=== PATIENT | female | born 1995 | race Caucasian/White ===

== ENCOUNTER 2017-02-05 02:39 | Emergency (ER) | payer OTHER ==
[~2017-02-05] VITALS: Ht 152.4 cm; Wt 98.4 kg
[~2017-02-05 02:39] MED LIST: ASPIRIN325 MG PO; BACTRIM DS TAB1 EACH PO; CEPACOL SORE T1 EAC5 MM; CYCLOBENZAPRINE10 MG PO; HYDROCODON-ACE1 EA10 PO; KEFLEX500 MG PO; NAPROXEN500 MG PO; NORCO 5-325 TA1 EACH PO; PNV PRENATAL P1 EACH PO; PROVENTIL HFA6.7 GM INH; STRATTERA40 MG PO; TRAMADOL HCL50 MG PO; VENTOLIN HFA18 GM INH; ZOFRAN ODT4 MG PO
--- NOTE | 2017-02-05 17:13 | EKG ---
[facility] [address] [facility] [place], [place] [address] Signed Normal sinus rhythm Normal ECG No previous ECGs available Confirmed by JULIANNE CHUN MD ([id number]) on 02/05/2017 5:12:56 PM Electronically Signed By: JULIANNE CHUN MD 02/05/17 1713 PATIENT NAME: GURINDER CHANDRA Electrocardiogram DATE OF : [birth year] PHYSICIAN: JULIANNE CHUN MD REPORT #: [id number] REPORT IS CONFIDENTIAL AND NOT TO BE RELEASED WITHOUT AUTHORIZATION
== END 2017-02-05 06:30 | disposition home or self-care (01) ==
LOC: ED 02:39
DX: R53.1 Weakness (principal); F90.9 Attention-deficit hyperactivity disorder, unspecified type; F43.10 Post-traumatic stress disorder, unspecified; J45.909 Unspecified asthma, uncomplicated; Z87.891 Personal history of nicotine dependence; Z79.899 Other long term (current) drug therapy
CPT/HCPCS: 70450; 80053; 81001; 82550; 83735; 84703; 85025; 93005; 93010; 96360; 99284; G0480; J7030

== ENCOUNTER 2017-07-31 22:35 | Emergency (ER) | payer OTHER ==
[~2017-07-31] VITALS: Ht 152.4 cm; Wt 9852.9 kg
[2017-07-31] MEDS ORDERED: HYDROXYZINE HCL50 MG PO (23:33)
[2017-07-31] MEDS ORDERED: ELIMITE60 GM TOP (23:33)
== END 2017-07-31 23:48 | disposition home or self-care (01) ==
LOC: ED 22:35
DX: R21 Rash and other nonspecific skin eruption (principal); F90.9 Attention-deficit hyperactivity disorder, unspecified type; F43.10 Post-traumatic stress disorder, unspecified; J45.909 Unspecified asthma, uncomplicated; Z87.891 Personal history of nicotine dependence; Z79.899 Other long term (current) drug therapy
CPT/HCPCS: 99283

== ENCOUNTER → 2017-08-19 | Emergency (ER) | payer OTHER ==
[~2017-08-19] VITALS: Ht 152.4 cm; Wt 101.6 kg
[~2017-08-19] MED LIST changes: +ELIMITE60 GM TOP; +HYDROXYZINE HCL50 MG PO
== END ==
LOC: ED 19:17
DX: R09.81 Nasal congestion (principal); J45.909 Unspecified asthma, uncomplicated; Z87.891 Personal history of nicotine dependence; Z79.899 Other long term (current) drug therapy
CPT/HCPCS: 99282

== ENCOUNTER 2018-01-08 13:45 | Emergency (ER) | payer OTHER ==
[~2018-01-08] VITALS: Ht 152.4 cm; Wt 101.6 kg
[2018-01-08] MEDS ORDERED: ZOFRAN ODT8 MG PO (15:39)
== END 2018-01-08 15:45 | disposition home or self-care (01) ==
LOC: ED 13:45
DX: N92.6 Irregular menstruation, unspecified (principal); R10.31 Right lower quadrant pain; R10.32 Left lower quadrant pain; F90.9 Attention-deficit hyperactivity disorder, unspecified type; F43.10 Post-traumatic stress disorder, unspecified; J45.909 Unspecified asthma, uncomplicated
CPT/HCPCS: 81001; 84703; 99284

== ENCOUNTER 2018-08-11 19:59 | Emergency (ER) | payer BC, OTHER ==
[~2018-08-11] VITALS: Ht 152.4 cm; Wt 105.2 kg
[~2018-08-11 19:59] MED LIST changes: +ZOFRAN ODT8 MG PO
--- OUTSIDE RECORDS SUMMARY | 2018-08-11 20:02 | XMS ---
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 PLEASE GIVE PATIENT THIS FOLDING MACHINE SETTER NAME AND NUMBER TO CALL FOR HELP OR QUESTIONS. RAEGAN TRAN TRAILHEAD MAINTENANCE WORKERBI ANALYST [facility] [phone] EKatie VISIT COUNT (12 MO.) 1 Britney Alonso M.C. 4 MIKE Ryder TOTAL 5 NOTE: Visits indicate total known visits. ED/UCC VISIT TRACKING (12 MO.) 08/11/2018 20:00 MIKE Ortega [place] TYPE: Emergency COMPLAINT: - RASH 05/13/2018 06:59 MIKE Ortega [place] TYPE: Emergency COMPLAINT: - VAGINAL BLEEDING; 7 WEEKS DIAGNOSES: - Less than 8 weeks gestation of - Unspecified asthma, uncomplicated - Threatened - Post-traumatic stress disorder, unspecified - Attention-deficit hyperactivity disorder, unspecified type 01/08/2018 17:50 [facility] Ashely HUGGINS TYPE: Emergency DIAGNOSES: - Unspecified abdominal pain - Abdominal Pain - abd pain 01/08/2018 13:45 MIKE Martins TYPE: Emergency COMPLAINT: - ABD PAIN DIAGNOSES: - Left lower quadrant pain - Attention-deficit hyperactivity disorder, unspecified type - Irregular menstruation, unspecified - Right lower quadrant pain - Post-traumatic stress disorder, unspecified - Unspecified asthma, uncomplicated 08/19/2017 19:18 MIKE Ortega [place] TYPE: Emergency COMPLAINT: - CONGESTION DIAGNOSES: - Acute pharyngitis, unspecified - Other bed bug exterminator (current) drug therapy - Unspecified asthma, uncomplicated - Nasal congestion - Personal history of nicotine dependence INPATIENT VISIT TRACKING (12 MO.) No inpatient visits to display in this time frame [email or web address]
[2018-08-11] MEDS ORDERED: VENTOLIN HFA18 GM INH (20:31)
[2018-08-11] MEDS ORDERED: TRIAMCINOLONE A15 GM TOP (21:05)
== END 2018-08-11 21:13 | disposition home or self-care (01) ==
LOC: ED 19:59
DX: L20.9 Atopic dermatitis, unspecified (principal); F90.9 Attention-deficit hyperactivity disorder, unspecified type; F43.10 Post-traumatic stress disorder, unspecified; J45.909 Unspecified asthma, uncomplicated
CPT/HCPCS: 99282

== ENCOUNTER 2018-09-07 12:46 | Emergency (ER) | payer BC, OTHER ==
[~2018-09-07] VITALS: Ht 152.4 cm; Wt 111.8 kg
--- OUTSIDE RECORDS SUMMARY | ~2018-09-07 | XMS | Clinical Summary ---
Demographics + + + | Address | [address] | | | [place] [address] | + + + | Home Phone | | + + + | Preferred Language | Unknown | + + + | Marital Status | Unknown | + + + | Faith Affiliation | Unknown | + + + | Race | Unknown | + + + | Ethnic Group | Unknown | + + + Author + + + | Author | [facility] | | | and [place] | + + + | Organization | [facility] | | | and [place] | [...] Team Providers + +------+ + | Care Vessel Builder Name | Role | Phone | + +------+ + | No, Physician | PP | Unavailable | + +------+ + Allergies No Known Allergies Current Medications + + +--------+---------+------+------+-------+ | Prescription | Sig. | Disp. | Refills | Star | End | Statu | | | | | | t | Date | s | | | | | | Date | | | + + +--------+---------+------+------+-------+ | albuterol 90 | Inhale 2 puffs into | | | | | Activ | | mcg/puff inhaler | the lungs every 6 | | | | | e | | | hours as needed for | | | | | | | | Wheezing. | | | | | | + + +--------+---------+------+------+-------+ | | Take 1-2 tablets by | 12 | 0 | 07/1 | | Activ | | HYDROcodone-acetamin | mouth every 6 hours | tablet | | 5/20 | | e | | ophen (NORCO) 5-325 | as needed for Pain. | | | 18 | | | | mg per tablet | | | | | | | + + +--------+---------+------+------+-------+ | ondansetron | Take 1 tablet by | 10 | 0 | 07/1 | | Activ | | (ZOFRAN ODT) 4 mg | mouth every 8 hours | tablet | | 5/20 | | e | | disintegrating | as needed for | | | 18 | | | | tablet | Nausea. | | | | | | + + +--------+---------+------+------+-------+ Active Problems Not on file Social History + +-------+ +--------+------+ [...] + + +---------+ + + + + + | Currently | Estimated Date of Delivery | Comments | + + + + | Yes | | | + + + + + + + | Sex Assigned at | Date Recorded | | | | + + + | Not on file | | + + + Last Filed Vital Signs + + + + | Vital Sign | Reading | Time Taken | + + + + | Blood Pressure | 102/83 | 01/08/20181949 PDT | + + + + | Pulse | 69 | 01/08/20181949 PDT | + + + + | Temperature | 36.3 C (97.3 F) | 01/08/2018 1813 PDT | + + + + | [...] | | | | | (#1) | 8 | | | + + + + + Results Not on filefrom Last 3 Months Insurance + +--------+ +--------+ +---------+ | Payer | Benefi | Subscriber | Type | Phone | Address | | | t Plan | ID | | | | | | / | | | | | | | Group | | | | | + +--------+ +--------+ +---------+ | [employer] | MODA | [id number] | Medica | [phone] | | MEDICAID HMO | HEALTH | | id | 9821 | | | | [place]CD | | | | | | | [place] | | | | | + +--------+ +--------+ +---------+ + +--------+ +--------+ + + | Guarantor Name | Accoun | Relation to | Date | Phone | Billing Address | | | t Type | Patient | of | | | | | | | | | | + +--------+ +--------+ + + | JODI CHANDRA | Person | Self | [birth year] | Home: | [address] | | [place] | al/Lance | | 1995 | [phone] [place], [place] | | | dewayne | | | [phone] | + +--------+ +--------+ + +"
--- OUTSIDE RECORDS SUMMARY | ~2018-09-07 | XMS | Clinical Summary ---
Demographics + + + | Address | [address] | | | [place] [address] | + + + | Home Phone | | + + + | Preferred Language | Unknown | + + + | Marital Status | Unknown | + + + | Faith Affiliation | Unknown | + + + | Race | Unknown | + + + | Ethnic Group | Unknown | + + + Author + + + | Author | [facility] | | | and [place] | + + + | Organization | [facility] | | | and [...] Team Providers + +------+ + | Care Tuyere Fitter Name | Role | Phone | + [...] | [employer] | MODA | [id number] | Medica | [phone] | | [...] | [place] | | | [phone] | [phone] | + +--------+ +--------+ + +"
[~2018-09-07 12:46] MED LIST changes: +TRIAMCINOLONE A15 GM TOP
--- OUTSIDE RECORDS SUMMARY | 2018-09-07 12:50 | XMS ---
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 PLEASE GIVE PATIENT THIS ASSEMBLER CAMPER NAME AND NUMBER TO CALL FOR HELP OR QUESTIONS. RAEGAN TRAN TECHNICIAN AUTOMATICDIRECTOR OF PHARMACY [facility] [phone] Bharti VISIT COUNT (12 MO.) 1 Britney Alonso M.C. 4 MIKE Ryder TOTAL 5 NOTE: Visits indicate total known visits. ED/UCC VISIT TRACKING (12 MO.) 09/07/2018 12:47 MIKE Ortega [place] TYPE: Emergency COMPLAINT: - RASH ON BREASTS 08/11/2018 20:00 MIKE Ortega [place] TYPE: Emergency COMPLAINT: - RASH DIAGNOSES: - Unspecified asthma, uncomplicated - Atopic dermatitis, unspecified - Post-traumatic stress disorder, unspecified - Attention-deficit hyperactivity disorder, unspecified type - Rash and other nonspecific skin eruption 05/13/2018 06:59 MIKE Ortega [place] TYPE: Emergency COMPLAINT: - VAGINAL BLEEDING; 7 WEEKS DIAGNOSES: - Less than 8 weeks gestation of - Unspecified asthma, uncomplicated - Threatened - Post-traumatic stress disorder, unspecified - Attention-deficit hyperactivity disorder, unspecified type 01/08/2018 17:[address] [facility] Marcos HUGGINS TYPE: Emergency DIAGNOSES: - Unspecified abdominal pain - Abdominal Pain - abd pain 01/08/2018 13:45 MIKE Martins TYPE: Emergency COMPLAINT: - ABD PAIN DIAGNOSES: - Left lower quadrant pain - Attention-deficit hyperactivity disorder, unspecified type - Irregular menstruation, unspecified - Right lower quadrant pain - Post-traumatic stress disorder, unspecified - Unspecified asthma, uncomplicated INPATIENT VISIT TRACKING (12 MO.) No inpatient visits to display in this time frame [email or web address]
== END 2018-09-07 13:11 | disposition home or self-care (01) ==
LOC: ED 12:46
DX: R21 Rash and other nonspecific skin eruption (principal)

== ENCOUNTER 2018-12-24 22:55 | Emergency (ER) | payer OTHER ==
[~2018-12-24] VITALS: Ht 152.4 cm; Wt 111.6 kg
--- OUTSIDE RECORDS SUMMARY | 2018-12-24 22:58 | XMS ---
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 Guidelines Date: 12/30/2016 Care Coordination: ENCOURAGE PATIENT TO USE PCP FOR FOLLOW UP AND FOR NON-EMERGENT PROBLEMS. PLEASE GIVE PATIENT THIS DESIGNER ARCHITECT NAME AND NUMBER TO CALL FOR HELP OR QUESTIONS. 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 5 MIKE Ryder TOTAL 6 NOTE: Visits indicate total known visits. ED/UCC VISIT TRACKING (12 MO.) 12/24/2018 22:56 MIKE Ortega [place] TYPE: Emergency COMPLAINT: - POSS INFECTION 09/07/2018 12:47 MIKE Ortega [place] TYPE: Emergency COMPLAINT: - RASH ON BREASTS DIAGNOSES: - Rash and other nonspecific skin eruption 08/11/2018 20:00 MIKE Martins TYPE: Emergency COMPLAINT: - RASH DIAGNOSES: - [...] Attention-deficit hyperactivity disorder, unspecified type 01/08/2018 17:50 [facility] Ashely HUGGINS TYPE: Emergency DIAGNOSES: - Unspecified [...] visits to display in this time frame [email or web address]
[2018-12-24] MEDS ORDERED: NYSTATIN15 GM TOP (23:17)
== END 2018-12-24 23:27 | disposition home or self-care (01) ==
LOC: ED 22:55
DX: O99.711 Diseases of the skin and subcutaneous tissue complicating pregnancy, first trimester (principal); L30.4 Erythema intertrigo; F90.9 Attention-deficit hyperactivity disorder, unspecified type; F43.10 Post-traumatic stress disorder, unspecified; Z87.891 Personal history of nicotine dependence
CPT/HCPCS: 99282

== ENCOUNTER 2019-04-21 12:11 | Emergency (ER) | payer OTHER ==
[~2019-04-21] VITALS: Ht 152.4 cm; Wt 115.4 kg
--- OUTSIDE RECORDS SUMMARY | ~2019-04-21 | XMS | Clinical Summary ---
Demographics + + + | Address | [address] | | | [place] [address] | + + + | Home Phone | | + + + | Preferred Language | Unknown | + + + | Marital Status | Unknown | + + + | Mormon Affiliation | Unknown | + + + | Race | Unknown | + + + | Ethnic Group | Unknown | + + + Author + + + | Author | [facility] | | | and [place] | + + + | Organization | [facility] | | | and [place] | + + + | Address | Unknown | + + + | Phone | Unavailable | + + + Support + + +---------+ + | Name | Relationship | Address | Phone | + + +---------+ + | Keny Meeks | ECON | Unknown | | + + +---------+ + Care Team Providers + +------+ + | Care Professor Of Finance Name | Role | Phone | + +------+ + | No, Physician | PCP | Unavailable | + +------+ + Allergies No Known Allergies Medications + + + +---------+------+------+-------+ | Medication | Sig | Dispensed | Refills | Star | End | Statu | | | | | | t | Date | s | | | | | | Date | | | + + + +---------+------+------+-------+ | albuterol 90 | Inhale 2 puffs into | | 0 | | | Activ | | mcg/puff inhaler | the lungs every 6 | | | | | e | | | hours as needed for | | | | | | | | Wheezing. | | | | | | + + + +---------+------+------+-------+ | | Take 1-2 tablets by | 12 | 0 | 07/1 | | Activ | | HYDROcodone-acetamin | mouth every 6 hours | tablet | | 5/20 | | e | | ophen (NORCO) 5-325 | as needed for Pain. | | | 18 | | | | mg per tablet | | | | | | | + + + +---------+------+------+-------+ | ondansetron | Take 1 tablet by | 10 | 0 | 07/1 | | Activ | | (ZOFRAN ODT) 4 mg | mouth every 8 hours | tablet | | 5/20 | | e | | disintegrating | as needed for | | | 18 | | | | tablet | Nausea. | | | | | | + + + +---------+------+------+-------+ Active Problems + + + | | Comments | + + + | Yes | | + + + No additional problems on file Social History + +-------+ +--------+------+ | Tobacco Use | Types | Packs/Day | Years | Date | | | | | Used | | + +-------+ +--------+------+ | Never Smoker | | | | | + +-------+ +--------+------+ + + +---------+ + | Alcohol Use | Drinks/We | oz/Week | Comments | | | ek | | | + + +---------+ + | Yes | | | occasionally | + + +---------+ + + + + | | Comments | + + + | Yes | | + + + + + + | Sex Assigned at | Date Recorded | | | | + + + | Not on file | | + + + + + + + | Job Start Date | Occupation | Industry | + + + + | Not on file | Not on file | Not on file | + + + + + + + + | Travel History | Travel Start | Travel End | + + + + + + | No recent travel history available. | + + Last Filed Vital Signs + + + + | Vital Sign | Reading | Time Taken | + + + + | Blood Pressure | 102/83 | 01/08/20181949 PDT | + + + + | Pulse | 69 | 01/08/20181949 PDT | + + + + | Temperature | 36.3 C (97.3 F) | 01/08/20181812 PDT | + + + + | Respiratory Rate | 18 | 01/08/20181812 PDT | + + + + | Oxygen Saturation | 99% | 01/08/20181949 PDT | + + + + | Inhaled Oxygen | - | - | | Concentration | | | + + + + | Weight | 113.4 kg (250 lb) | 01/08/20181812 PDT | + + + + | Height | 152.4 cm (5') | 01/08/20181812 PDT | + + + + | Body Mass Index | 48.82 | 01/08/20181812 PDT | + + + + Plan of Treatment + + + + + | Health Maintenance | Due Date | Last Done | Comments | + + + + + | Vaccine: | | | | | Dtap/Tdap/Td (1 - | 5 | | | | Tdap) | | | | + + + + + | Cervical Cancer | | | | | Screening (Pap) | 7 | | | + + + + + | Vaccine: Influenza | | | | | (#1) | 9 | | | + + + + + Results Not on filefrom Last 3 Months Insurance + +--------+ +--------+ +---------+--------+ | Payer | Benefi | Subscriber | Effect | Phone | Address | Type | | | t Plan | ID | lan | | | | | | / | | Dates | | | | | | Group | | | | | | + +--------+ +--------+ +---------+--------+ | [employer] | MODA | [id number] | | [phone] | | Medica | | MEDICAID HMO | HEALTH | | [phone]-Pr | 1 | | id | | | MDCD | | esent | | | | | | [place]MO [place] | | | | | | + +--------+ +--------+ +---------+--------+ + +--------+ +--------+ + + | Guarantor Name | Accoun | Relation to | Date | Phone | Billing Address | | | t Type | Patient | of | | | | | | | | | | + +--------+ +--------+ + + | Jodi Bethea | Person | Self [birth year] | [address] | | [place] | sunil/Lance | | 1995 | [phone] | [place] | | | [place] | | | 1 (Home) | [phone] | + +--------+ +--------+ + + Advance Directives Patient has advance care planning documents on file. For more information, please contact:[facility] [place] [address]"
--- OUTSIDE RECORDS SUMMARY | ~2019-04-21 | XMS | Clinical Summary ---
Demographics + + + | Address | [address] | | | [place] [address] | + + + | Home Phone | | + + + | Preferred Language | Unknown | + + + | Marital Status | Unknown | + + + | Uatsdin Affiliation | Unknown | + + + | Race | Unknown | + + + | Ethnic Group | Unknown | + + + Author + + + | Author | [facility] | | | and [place] | + + + | Organization | [facility] | | | and [place] [...] Team Providers + +------+ + | Care Cook Morning Name | Role | Phone | + [...] | [employer] | MODA | [id number] | | [phone] | | Medica | [...] Miriam | sunil/Lance | | 1995 | [phone] | [place] | | | [place] | | | 1 (Home) | [phone] | + +--------+ +--------+ + + Advance Directives Patient has advance care planning documents on file. For more information, please contact:[facility] [place] [address]"
[~2019-04-21 12:11] MED LIST changes: +NYSTATIN15 GM TOP
[2019-04-21] MEDS ORDERED: TYLENOL325 M1 PO (15:08)
--- NOTE | 2019-04-21 19:59 | EKG ---
[facility] [address] [facility] [place], [place] [address] Signed Normal sinus rhythm Normal ECG Confirmed by JULIANNE CHUN MD ([id number]) on 04/21/2019 7:59:17 PM Electronically Signed By: JULIANNE CHUN MD 04/21/19 195 PATIENT NAME: GURINDER CHANDRA Electrocardiogram DATE OF : [birth year] PHYSICIAN: JULIANNE CHUN MD REPORT #: [id number] REPORT IS CONFIDENTIAL AND NOT TO BE RELEASED WITHOUT AUTHORIZATION
== END 2019-04-21 15:22 | disposition home or self-care (01) ==
LOC: ED 12:11
DX: O99.613 Diseases of the digestive system complicating pregnancy, third trimester (principal); K80.20 Calculus of gallbladder without cholecystitis without obstruction; Z87.891 Personal history of nicotine dependence
CPT/HCPCS: 76705; 80053; 83690; 83735; 84484; 85025; 93005; 93010; 96374; 99284-25; J2405

== ENCOUNTER 2019-05-31 09:40 | Inpatient (IN) | payer OTHER ==
[~2019-05-31 09:40] MED LIST changes: +TYLENOL325 M1 PO
--- NOTE | 2019-06-06 14:00 | NUR ---
06/06/19 1400 Soni Coulter 1349-PATIENT ARRIVED TO PACU ON RA AWAKE DENIES PAIN OR NAUSEA. SR. SPINAL LEVEL L1 REPORTS TENDERNESS WHEN PRESSING ABDOMEN. NO DRAINAGE TO SARAHY PAD. FUNDUS 1 ABOVE UMBILICUS FIRM. 1355-MOM HOLDING BABY
--- NOTE | 2019-06-07 10:15 | PR ---
[facility] [address] [facility] [place], [place] [address] Signed PP Progress Notes Datetime Report Generated by CPN: 06/07/2019 10:15 SUBJECTIVE: [id number] Pain: Within normal limits Nausea/Vomiting: Denies Vital Signs: [id number] Vital Signs: Reviewed; Within Normal Limits Notable Details: PP Hgb/Hct = 8.8/26.4 EXAM: [id number] Abdomen/Uterus: Normal Lochia: Normal Extremities: Normal Incision: Normal Exam Comments: dressing clean and dry IMPRESSION/PLAN/PROCEDURES: [id number] Impression: Normal progression Other Impression: PP Anemia Progress Notes: Doing well, witout complaint. Tolerating food wll. Encouraged increased actitivy once Lucia cath removed. Signing Physician: Luis Hobson MD Copies: ~ *Electronically Signed* 06/07/19 1015 LUIS HOBSON MD PATIENT NAME: GURINDER CHANDRA PROGRESS NOTE DATE OF : 95 PHYSICIAN: LUIS HOBSON MD RPT #: [id number] REPORT IS CONFIDENTIAL AND NOT TO BE RELEASED WITHOUT AUTHORIZATION
--- NOTE | 2019-06-07 10:16 | OR ---
[facility] [address] [place], [place] [address] Signed DATE OF OPERATION: 06/06/2019 SURGEON: Shawn Whitney MD DATE OF PROCEDURE: 06/06/2019 PREOPERATIVE DIAGNOSIS: Term , previous section. POSTOP DIAGNOSIS: Term , previous section. PROCEDURE: Repeat low transverse segment section. Delivery of live male . SHIPPING CLERK/ADMIN: Dr. Alicea. ANESTHESIA: Spinal. ESTIMATED BLOOD LOSS: 700 mL. COMPLICATIONS: None. DRAINS: Lucia to bladder. FINDINGS: Live male infant, Apgars 8 and 9. Weight 9 pounds 0 ounces. Normal uterus, normal tubes and ovaries. DESCRIPTION OF PROCEDURE: The patient was brought to the operating room, placed in supine position. After adequate spinal anesthesia was obtained, she was prepped and draped in usual sterile fashion. Lucia catheter was placed in the bladder. A Pfannenstiel skin incision was made through previous surgical scar using a scalpel. Subcutaneous tissue was dissected Electronically Signed By: SHAWN WHITNEY MD 06/07/19 1016 PATIENT NAME: GURINDER CHANDRA OPERATIVE REPORT DATE OF : 95 REPORT #: [id number] PHYSICIAN: SHAWN WHITNEY MD PCP: NO PRIMARY CARE PHYSICIAN REPORT IS CONFIDENTIAL AND NOT TO BE RELEASED WITHOUT AUTHORIZATION [facility] [address] [place] [address] Signed with scalpel and Bovie. The fascia was nicked with scalpel and extended in transverse fashion using curved scissors. The underlying abdominal musculature was bluntly and sharply from the fascia above and below the incision. The abdominal musculature was bluntly and sharply along the midline. The peritoneum was grasped with hemostats, elevated, nicked with scissors and extended in vertical fashion using finger dissection. The Johnny self-retaining retractor was inserted into the incision and tightened in place. The lower uterine segment was identified. The bladder noted to be well below the area of dissection. The lower uterine segment was carefully nicked in the midline using a scalpel. A finger dissection was used to extend the incision in transverse fashion. Incision was right at the edge of the anterior placenta and the lower edge of the placenta did extrude into the incision. The 's head was noted to be in vertex TEX presentation. The infant's head was delivered with some difficulty, then the shoulders. Then, nuchal cord loose x1 was noted and this was removed. Then, the rest of the was delivered. The cord was doubly clamped and cut. The infant passed off table in good condition to the awaiting nurse. The placenta was manually removed and uterine cavity explored with a lap pad to remove any retained membranes. T clamps were used to grasp the edges of the incision. An angle stitch of 0 Monocryl was placed one in the incision and a running locking stitch of 0 Monocryl starting at the other end used to close the incision. A 2nd running stitch of 0 Monocryl was used to imbricate the 1st layer. Good hemostasis was noted along the incision, but the bladder flap was noted to be somewhat raw, although no active bleeding seen. The entire pelvis was irrigated, suctioned, examined. No active bleeding seen. The Johnny self-retaining retractor was removed. The lower uterine segment and bladder flap were examined. It was decided to place the Tisseel for improved hemostasis in the raw area and after placing this, a sheet of ACell was placed over the lower uterine segment to help with healing. The anterior wall of the peritoneum was then closed using running stitch of 2-0 Vicryl suture. The abdominal musculature was reapproximated using interrupted stitches of 0 Vicryl suture. There was one area in the upper left angle between the abdominal musculature and the fascia that had some bleeding, which was controlled with two [id number]-[id number] stitches of 0 Vicryl suture. The remaining Tisseel was placed in this area for further hemostasis. When good hemostasis was obtained, powdered ACell was sprinkled over the abdominal musculature and then the fascia closed using two running stitches of 0 Vicryl suture meeting in the midline. Subcutaneous tissue was irrigated, suctioned, examined, and any bleeding spots cauterized with the Bovie. The remaining powdered ACell sprinkled on the subcutaneous tissue, which was closed using interrupted stitches of 3-0 Vicryl suture. The skin was reapproximated using skin clips. The patient tolerated the procedure well, went to recovery room in good condition. The sponge, needle, and instrument count correct at the end of the procedure. Electronically Signed By: SHAWN WHITNEY MD 06/07/19 1016 PATIENT NAME: GURINDER CHANDRA OPERATIVE REPORT DATE OF : 95 REPORT #: [id number] PHYSICIAN: SHAWN WHITNEY MD PCP: NO PRIMARY CARE PHYSICIAN REPORT IS CONFIDENTIAL AND NOT TO BE RELEASED WITHOUT AUTHORIZATION [address] [address] Signed MD MANDA Crooks/MODL /[id number] Copies: ~ Electronically Signed By: SHAWN WHITNEY MD 06/07/19 1016 PATIENT NAME: GURINDER CHANDRA OPERATIVE REPORT DATE OF : [birth year] REPORT #: [id number] PHYSICIAN: SHAWN WHITNEY MD PCP: NO PRIMARY CARE PHYSICIAN REPORT IS CONFIDENTIAL AND NOT TO BE RELEASED WITHOUT AUTHORIZATION
--- NOTE | 2019-06-08 13:30 | PR ---
[facility] [address] [facility] [place] [address] Signed PP Progress Notes Datetime Report Generated by CPN: 06/08/2019 13:30 SUBJECTIVE: [id number] Pain: Within normal limits Nausea/Vomiting: Denies Vital Signs: [id number] Vital Signs: Reviewed; Within Normal Limits Notable Details: PP Hgb/Hct = 8.8/26.4 EXAM: [id number] Abdomen/Uterus: Normal Lochia: Normal Extremities: Normal Incision: Normal Exam Comments: dressing clean and dry IMPRESSION/PLAN/PROCEDURES: [id number] Impression: Normal progression Other Impression: PP Anemia Plan: Discharge Procedures: None Progress Notes: Doing well, ready to go home Signing Physician: Luis Hobson MD Copies: ~ *Electronically Signed* 06/08/19 9660 LUIS HOBSON MD PATIENT NAME: GURINDER CHANDRA PROGRESS NOTE DATE OF : 95 PHYSICIAN: LUIS HOBSON MD RPT #: [id number] REPORT IS CONFIDENTIAL AND NOT TO BE RELEASED WITHOUT AUTHORIZATION
== END 2019-06-08 13:45 | disposition home or self-care (01) | DRG 788 ==
LOC: FBC 06-06 09:50
PROVIDERS: ADMIT General Practice
PROC: 10D00Z1 Extraction of Products of Conception, Low, Open Approach (ICD-10-PCS; principal; 2019-06-06 12:00)
DX: O34.211 Maternal care for low transverse scar from previous cesarean delivery (principal); N85.8 Other specified noninflammatory disorders of uterus; Z37.0 Single live birth; O69.81X0 Labor and delivery complicated by cord around neck, without compression, not applicable or unspecified; O90.81 Anemia of the puerperium; D64.9 Anemia, unspecified; Z3A.39 39 weeks gestation of pregnancy; O99.52 Diseases of the respiratory system complicating childbirth; J45.909 Unspecified asthma, uncomplicated; Z87.891 Personal history of nicotine dependence; Z79.899 Other long term (current) drug therapy
CPT/HCPCS: 01961; 36415; 85027; A9270; J0131; J0690; J1644; J1885; J2274; J2300; J2370; J2405; J2590; J2765; J7121

== ENCOUNTER 2019-07-28 20:24 | Emergency (ER) | payer OTHER ==
[~2019-07-28] VITALS: Ht 154.9 cm; Wt 109.1 kg
[2019-07-28] MEDS ORDERED: SERTRALINE HCL50 MG PO (20:41)
== END 2019-07-28 21:11 | disposition home or self-care (01) ==
LOC: ED 20:24
DX: K62.5 Hemorrhage of anus and rectum (principal); F90.9 Attention-deficit hyperactivity disorder, unspecified type; J45.909 Unspecified asthma, uncomplicated; F31.9 Bipolar disorder, unspecified; Z87.891 Personal history of nicotine dependence; Z79.899 Other long term (current) drug therapy
CPT/HCPCS: 85014; 85018; 99283

== ENCOUNTER 2019-11-16 19:35 | Emergency (ER) | payer OTHER ==
[~2019-11-16] VITALS: Ht 154.9 cm; Wt 109.1 kg
--- OUTSIDE RECORDS SUMMARY | ~2019-11-16 | XMS | Encounter Summary ---
Demographics + + + | Address | [address] | | | [place] [address] | + + + | Home Phone | | + + + | Preferred Language | Unknown | + + + | Marital Status | Unknown | + + + | Adventism Affiliation | Unknown | + + + | Race | Unknown | + + + | Ethnic Group | Unknown | + + + Author + + + | Author | [facility] | | | and [place] | + + + | Organization | [facility] | | | and [place] [...] Team Providers + +------+ + | Care Inspection Engineer Name | Role | Phone | + +------+ + | No, Physician | PCP | Unavailable | + +------+ + Reason for Visit + + + | Reason | Comments | + + + | Abdominal Pain | | + + + Encounter Details +--------+ + + + + | Date | Type | Department | Care Team | Description | +--------+ + + + + | 01/08/ | Emergency | [facility] | Wellington Lawrence MD | Abdominal pain, | | 2018 | | [facility] | [address] | unspecified | | | | CENTER [address] | [place], [place] | abdominal location | | | | [place], [place] | [address] | (Primary Dx) | | | | [address] | | | | | | [phone] | | | +--------+ + + + + Social History + +-------+ +--------+------+ | Tobacco Use | Types | Packs/Day | Years | Date | | | | | Used | | + +-------+ +--------+------+ | Never Smoker | | | | | + +-------+ +--------+------+ + + +---------+ + | Alcohol Use | Drinks/Week | oz/Week | Comments | + + +---------+ + | Yes | | | occasionally | + + +---------+ + + + + | Sex Assigned [...] recent travel history available. | + + documented as of this encounter Last Filed Vital Signs + + + + + | Vital Sign | Reading | Time Taken | Comments | + + + + + | Blood Pressure | 102/83 | 01/08/2018 7:50 PM | | | | | PDT | | + + + + + | Pulse | 69 | 01/08/2018 7:50 PM | | | | | PDT | | + + + + + | Temperature | 36.3 C (97.3 F) | 01/08/2018 6:13 PM | | | | | PDT | | + + + + + | Respiratory Rate | 18 | 01/08/2018 6:13 PM | | | | | PDT | | + + + + + | Oxygen Saturation | 99% | 01/08/2018 7:50 PM | | | | | PDT | | + + + + + | Inhaled Oxygen | - | - | | | Concentration | | | | + + + + + | Weight | 113.4 kg (250 lb) | 01/08/2018 6:13 PM | | | | | PDT | | + + + + + | Height | 152.4 cm (5') | 01/08/2018 6:13 PM | | | | | PDT | | + + + + + | Body Mass Index | 48.82 | 01/08/2018 6:13 PM | | | | | PDT | | + + + + + documented in this encounter Discharge Instructions Instructions Wellington Lawrence MD - 01/08/2018Pain and nausea medication as needed Rest and fluids Return for worsening symptom, other new complaints documented in this encounter Medications at Time of Discharge + + + +---------+ + + | Medication | Sig | Dispensed | Refills | Start | End Date | | | | | | Date | | + + + +---------+ + + | albuterol 90 | Inhale 2 puffs into | | 0 | | | | mcg/puff inhaler | the lungs every 6 | | | | | | | hours as needed for | | | | | | | Wheezing. | | | | | + + + +---------+ + + | | Take 1-2 tablets by | 12 | 0 | 07/15/20 | | | HYDROcodone-acetamin | mouth every 6 hours | tablet | | 18 | | | ophen (NORCO) 5-325 | as needed for Pain. | | | | | | mg per tablet | | | | | | + + + +---------+ + + | ondansetron | Take 1 tablet by | 10 | 0 | 07/15/20 | | | (ZOFRAN ODT) 4 mg | mouth every 8 hours | tablet | | 18 | | | disintegrating | as needed for | | | | | | tablet | Nausea. | | | | | + + + +---------+ + + documented as of this encounter Plan of Treatment + +------+--------+ + + | Name | Type | Priori | Associated Diagnoses | Date/Time | | | | ty | | | + +------+--------+ + + | ED INFORMATION | YUMIKO | Routin | | 01/08/2018 5:52 PM | | EXCHANGE | | e | | PDT | + +------+--------+ + + documented as of this encounter Procedures + +--------+ + + + | Procedure Name | Priori | Date/Time | Associated Diagnosis | Comments | | | ty | | | | + +--------+ + + + | US PELVIS W | STAT | 01/08/2018 | | Results for this | | TRANSVAGINAL | | 9:51 PM | | procedure are in the | | | | PDT | | results section. | + +--------+ + + + | POCT URINALYSIS, | STAT | 01/08/2018 | | Results for this | | AUTO WITH CONF | | 6:54 PM | | procedure are in the | | | | PDT | | results section. | + +--------+ + + + | POCT TEST, | STAT | 01/08/2018 | | Results for this | | URINE, QUAL | | 6:54 PM | | procedure are in the | | | | PDT | | results section. | + +--------+ + + + | CBC W/AUTO | STAT | 01/08/2018 | | Results for this | | DIFFERENTIAL | | 6:30 PM | | procedure are in the | | | | PDT | | results section. | + +--------+ + + + | LIPASE | STAT | 01/08/2018 | | Results for this | | | | 6:30 PM | | procedure are in the | | | | PDT | | results section. | + +--------+ + + + | COMPREHENSIVE | STAT | 01/08/2018 | | Results for this | | METABOLIC PANEL | | 6:30 PM | | procedure are in the | | | | PDT | | results section. | + +--------+ + + + documented in this encounter Results US Pelvis W Transvaginal (01/08/2018 9:51 PM PDT) + + | Specimen | + + | | + + + + + | Narrative | Performed At | + + + | US PELVIS W TRANSVAGINAL 01/08/2018 9:30 PM HISTORY: Pain. | [facility] | | COMPARISON: None. PROTOCOL: Briseno scale and Doppler images of the | | | pelvis with transabdominal and transvaginal imaging. FINDINGS: | | | Uterus: There are no focal lesions. Size of the uterus is 9.4 x 2.9 x | | | 4.0 cm. Endometrium is 5 mm, which is normal. Right ovary: The | | | parenchyma is normal. The size of the ovary is 2.5 x 1.5 x 2.7 cm. | | | There is normal Doppler flow. Left ovary: The parenchyma is | | | normal. The size of the ovary is 2.7 x 2.0 x 3.0 cm. There is normal | | | Doppler flow. Adnexa: Normal. Cul-de-sac: Normal. | | | IMPRESSION - Normal ultrasound of pelvis. Dictated and Signed by: | | | Alessio Enriquez MD Electronically signed: 01/09/2018 8:32 AM | | + + + + + | Procedure Note | + + | Hakeem, Rad Results In - 01/09/2018 8:35 AM PDT US PELVIS W TRANSVAGINAL 01/08/2018 9:30 | | PM HISTORY: Pain.COMPARISON: None.PROTOCOL: Briseno scale and Doppler images of the pelvis | | with transabdominal andtransvaginal imaging.FINDINGS:Uterus: There are no focal | | lesions. Size of the uterus is 9.4 x 2.9 x 4.0 cm.Endometrium is 5 mm, which is | | normal.Right ovary: The parenchyma is normal. The size of the ovary is 2.5 x 1.5 x | | 2.7cm. There is normal Doppler flow.Left ovary: The parenchyma is normal. The size of | | the ovary is 2.7 x 2.0 x 3.0cm. There is normal Doppler flow.Adnexa: Normal.Cul-de-sac: | | Normal.IMPRESSION -Normal ultrasound of pelvis.Dictated and Signed by: Alessio Enriquez MD | | Electronically signed: 01/09/2018 8:32 AM | |FINDINGS: | |Uterus: There are no focal lesions. Size of the uterus is 9.4 x 2.9 x 4.0 cm. | |Endometrium is 5 mm, which is normal. | | | |Right ovary: The parenchyma is normal. The size of the ovary is 2.5 x 1.5 x 2.7 | |cm. There is normal Doppler flow. | | | |Left ovary: The parenchyma is normal. The size of the ovary is 2.7 x 2.0 x 3.0 | |cm. There is normal Doppler flow. | | | |Adnexa: Normal. | | | |Cul-de-sac: Normal. | | | |IMPRESSION - | |Normal ultrasound of pelvis. | | | |Dictated and Signed by: Alessio Enriquez MD | | Electronically signed: 01/09/2018 8:32 AM | + + + +---------+ + + | Performing | Address | City/State/Zipcode | Phone Number | | Organization | | | | + +---------+ + + | [facility] | | | | + +---------+ + + POCT Test, Urine, QUAL (01/08/2018 6:54 PM PDT) + + + + + + | Component | Value | Ref Range | Performed | Pathologist | | | | | At | Signature | + + + + + + | | Negative | Negative | [facility] | | | Test, | | | [facility] | | | Urine, POC | | | MEDICAL | | | | | | CENTER - | | | | | | LABORATORY | | + + + + + + | Internal QC | Acceptable | Acceptable | [facility] | | | | | | [facility] | | | | | | MEDICAL | | | | | | CENTER - | | | | | | LABORATORY | | + + + + + + | Specific | | 1.010, 1.015, | [facility] | | | Eads, | | 1.020, 1.025 | [facility] | | | POC | | | MEDICAL | | | | | | CENTER - | | | | | | LABORATORY | | + + + + + + | Lot Number | [id number] | | [facility] | | | | | | [facility] | | | | | | MEDICAL | | | | | | CENTER - | | | | | | LABORATORY | | + + + + + + | Expiration | 2019-04-05 | | [facility] | | | Date | | | [facility] | | | | | | MEDICAL | | | | | | CENTER - | | | | | | LABORATORY | | + + + + + + + + | Specimen | + + | Urine | + + + + + + + | Performing | Address | City/State/Zipcode | Phone Number | | Organization | | | | + + + + + | [facility] | [address] | [place], [place] | [phone] | | [facility] | | [address] | | | - LABORATORY | | | | + + + + + POCT Urinalysis Dipstick Automated (01/08/2018 6:54 PM PDT) + + + + + + | Component | Value | Ref Range | Performed | Pathologist | | | | | At | Signature | + + + + + + | Color, UA, | Yellow | Yellow, Light | [facility] | | | POC | | Yellow | [facility] | | | | | | MEDICAL | | | | | | CENTER - | | | | | | LABORATORY | | + + + + + + | Clarity, | Slightly Cloudy | | [facility] | | | UA, POC | | | [facility] | | | | | | MEDICAL | | | | | | CENTER - | | | | | | LABORATORY | | + + + + + + | Glucose, | Negative | Negative | [facility] | | | UA, POC | | | [facility] | | | | | | MEDICAL | | | | | | CENTER - | | | | | | LABORATORY | | + + + + + + | Bilirubin, | Negative | Negative | [facility] | | | UA, POC | | | [facility] | | | | | | MEDICAL | | | | | | CENTER - | | | | | | LABORATORY | | + + + + + + | Ketones, | Negative | Negative, 100 | [facility] | | | UA, POC | | mg/dL | [facility] | | | | | | MEDICAL | | | | | | CENTER - | | | | | | LABORATORY | | + + + + + + | Specific | 1.025 | 1.001 - 1.030 | [facility] | | | Eads, | | | [facility] | | | UA, POC | | | MEDICAL | | | | | | CENTER - | | | | | | LABORATORY | | + + + + + + | Blood, UA, | Negative | Negative | [facility] | | | POC | | | [facility] | | | | | | MEDICAL | | | | | | CENTER - | | | | | | LABORATORY | | + + + + + + | pH, UA, POC | 6.0 | 5.0, 6.0, 7.0, | [facility] | | | | | 8.0, 5.5, 6.5, | [facility] | | | | | 7.5 | MEDICAL | | | | | | CENTER - | | | | | | LABORATORY | | + + + + + + | Protein, | Negative | Negative | [facility] | | | UA, POC | | | [facility] | | | | | | MEDICAL | | | | | | CENTER - | | | | | | LABORATORY | | + + + + + + | Urobilinoge | < 0.2 E.U./dl | 0.2, Negative, | [facility] | | | n, UA, POC | | Normal, < 0.2 | [facility] | | | | | mg/dL, 1 mg/dL, | MEDICAL | | | | | < 0.2 E.U./dl, | CENTER - | | | | | 1.0 E.U./dL, | LABORATORY | | | | | 0.2 mg/dL | | | + + + + + + | Nitrite, | Negative | Negative | [facility] | | | UA, POC | | | [facility] | | | | | | MEDICAL | | | | | | CENTER - | | | | | | LABORATORY | | + + + + + + | Leukocyte | Negative | Negative | [facility] | | | Esterase, | | | [facility] | | | UA, POC | | | MEDICAL | | | | | | CENTER - | | | | | | LABORATORY | | + + + + + + | Reducing | | | [facility] | | | Substances, | | | [facility] | | | Urine | | | MEDICAL | | | | | | CENTER - | | | | | | LABORATORY | | + + + + + + | Bilirubin | | Negative | [facility] | | | Confirmatio | | | [facility] | | | n by | | | MEDICAL | | | Ictotest, | | | CENTER - | | | Urine | | | LABORATORY | | + + + + + + | Remark | | | [facility] | | | | | | [facility] | | | | | | MEDICAL | | | | | | CENTER - | | | | | | LABORATORY | | + + + + + + + + | Specimen | + + | Urine | + + + + + + + | Performing | Address | City/State/Zipcode | Phone Number | | Organization | | | | + + + + + | [facility] | [address] | [place] | [phone] | | [facility] | | [address] | | | - LABORATORY | | | | + + + + + Lipase (01/08/2018 6:30 PM PDT) + +-------+ + + + | Component | Value | Ref Range | Performed | Pathologist | | | | | At | Signature | + +-------+ + + + | Lipase | 26 | 0 - 60 U/L | [facility] | | | | | | [facility] | | | | | | MEDICAL | | | | | | CENTER - | | | | | | LABORATORY | | + +-------+ + + + + + | Specimen | + + | Blood | + + + + + + + | Performing | Address | City/State/Zipcode | Phone Number | | Organization | | | | + + + + + | [facility] | [address] | [place] | [phone] | | [facility] | | [address] | | | - LABORATORY | | | | + + + + + Comprehensive Metabolic Panel (01/08/2018 6:30 PM PDT) + + + + + + | Component | Value | Ref Range | Performed | Pathologist | | | | | At | Signature | + + + + + + | Na | 138 | 136 - 149 | [facility] | | | | | mmol/L | [facility] | | | | | | MEDICAL | | | | | | CENTER - | | | | | | LABORATORY | | + + + + + + | K | 3.6 | 3.5 - 5.1 | [facility] | | | | | mmol/L | [facility] | | | | | | MEDICAL | | | | | | CENTER - | | | | | | LABORATORY | | + + + + + + | Cl | 107 | 98 - 109 mmol/L | [facility] | | | | | | [facility] | | | | | | MEDICAL | | | | | | CENTER - | | | | | | LABORATORY | | + + + + + + | CO2 | 23 (L) | 24 - 31 mmol/L | [facility] | | | | | | [facility] | | | | | | MEDICAL | | | | | | CENTER - | | | | | | LABORATORY | | + + + + + + | Anion Gap | 8 | 3 - 16 mmol/L | [facility] | | | | | | [facility] | | | | | | MEDICAL | | | | | | CENTER - | | | | | | LABORATORY | | + + + + + + | Glucose | 88 | 70 - 109 mg/dL | [facility] | | | | | | [facility] | | | | | | MEDICAL | | | | | | CENTER - | | | | | | LABORATORY | | + + + + + + | BUN | 10 | 7 - 18 mg/dL | [facility] | | | | | | [facility] | | | | | | MEDICAL | | | | | | CENTER - | | | | | | LABORATORY | | + + + + + + | Creatinine | 0.84 | 0.60 - 1.30 | [facility] | | | | | mg/dL | [facility] | | | | | | MEDICAL | | | | | | CENTER - | | | | | | LABORATORY | | + + + + + + | eGFR if not | >60Comment: GLOMERULAR | >=60 | [facility] | | | | FILTRATION | mL/min/1.73m2 | [facility] | | | MALIAN | RATE,ESTIMATED | | MEDICAL | | | | mL/min/1.24l2Rfol than | | CENTER - | | | | 60 Chronic kidney | | LABORATORY | | | | disease,if found over a | | | | | | 3-month period.Less than | | | | | | 15 Kidney failureFor | | | | | | | | | | | | Americans,multiply the | | | | | | calculated GFR by 1.21. | | | | | | | | | | + + + + + + | Calcium | 8.9 | 8.3 - 10.5 | [facility] | | | | | mg/dL | [facility] | | | | | | MEDICAL | | | | | | CENTER - | | | | | | LABORATORY | | + + + + + + | Albumin | 3.8 | 3.2 - 5.0 g/dL | [facility] | | | | | | [facility] | | | | | | MEDICAL | | | | | | CENTER - | | | | | | LABORATORY | | + + + + + + | Bilirubin | 0.6Comment: This is an | 0.1 - 1.5 mg/dL | [facility] | | | Total | appended report. These | | [facility] | | | | results have been | | MEDICAL | | | | appended to a previously | | CENTER - | | | | preliminary verified | | LABORATORY | | | | report. | | | | + + + + + + | Total | 6.7 | 6.0 - 7.8 g/dL | [facility] | | | Protein | | | [facility] | | | | | | MEDICAL | | | | | | CENTER - | | | | | | LABORATORY | | + + + + + + | AST | 18Comment: This is an | 10 - 42 U/L | [facility] | | | | appended report. These | | [facility] | | | | results have been | | MEDICAL | | | | appended to a previously | | CENTER - | | | | preliminary verified | | LABORATORY | | | | report. | | | | + + + + + + | ALT | 15Comment: This is an | 6 - 45 U/L | [facility] | | | | appended report. These | | [facility] | | | | results have been | | MEDICAL | | | | appended to a previously | | CENTER - | | | | preliminary verified | | LABORATORY | | | | report. | | | | + + + + + + | Alkaline | 97Comment: This is an | 40 - 110 U/L | [facility] | | | Phosphatase | appended report. These | | [facility] | | | | results have been | | MEDICAL | | | | appended to a previously | | CENTER - | | | | preliminary verified | | LABORATORY | | | | report. | | | | + + + + + + | Globulin | 2.9 | 2.1 - 3.8 g/dL | [facility] | | | | | | [facility] | | | | | | MEDICAL | | | | | | CENTER - | | | | | | LABORATORY | | + + + + + + | Albumin/Em | 1.3 | 0.8 - 2.0 | [facility] | | | bulin Ratio | | | [facility] | | | | | | MEDICAL | | | | | | CENTER - | | | | | | LABORATORY | | + + + + + + | BUN/Creatin | 11.9 | | [facility] | | | ine Ratio | | | [facility] | | | | | | MEDICAL | | | | | | CENTER - | | | | | | LABORATORY | | + + + + + + + + | Specimen | + + | Blood | + + + + + + + | Performing | Address | City/State/Zipcode | Phone Number | | Organization | | | | + + + + + | [facility] | [address] | [place] | [phone] | | [facility] | | [address] | | | - LABORATORY | | | | + + + + + CBC w/ Auto Differential (01/08/2018 6:30 PM PDT) + +-------+ + + + | Component | Value | Ref Range | Performed | Pathologist | | | | | At | Signature | + +-------+ + + + | WBC | 7.7 | 4.0 - 11.0 K/uL | [facility] | | | | | | [facility] | | | | | | MEDICAL | | | | | | CENTER - | | | | | | LABORATORY | | + +-------+ + + + | RBC | 4.68 | 3.70 - 5.20 | [facility] | | | | | M/uL | [facility] | | | | | | MEDICAL | | | | | | CENTER - | | | | | | LABORATORY | | + +-------+ + + + | Hemoglobin | 13.3 | 11.5 - 16.0 | [facility] | | | | | g/dL | [facility] | | | | | | MEDICAL | | | | | | CENTER - | | | | | | LABORATORY | | + +-------+ + + + | Hematocrit | 39.1 | 34.0 - 47.0 % | [facility] | | | | | | [facility] | | | | | | MEDICAL | | | | | | CENTER - | | | | | | LABORATORY | | + +-------+ + + + | MCV | 83.6 | 83.0 - 101.0 fL | [facility] | | | | | | [facility] | | | | | | MEDICAL | | | | | | CENTER - | | | | | | LABORATORY | | + +-------+ + + + | MCH | 28.4 | 28.0 - 35.0 pg | [facility] | | | | | | [facility] | | | | | | MEDICAL | | | | | | CENTER - | | | | | | LABORATORY | | + +-------+ + + + | MCHC | 34.0 | 32.0 - 36.0 | [facility] | | | | | g/dL | [facility] | | | | | | MEDICAL | | | | | | CENTER - | | | | | | LABORATORY | | + +-------+ + + + | RDW-CV | 14.8 | <15.0 % | [facility] | | | | | | [facility] | | | | | | MEDICAL | | | | | | CENTER - | | | | | | LABORATORY | | + +-------+ + + + | Platelet | 249 | 140 - 440 K/uL | [facility] | | | Count | | | [facility] | | | | | | MEDICAL | | | | | | CENTER - | | | | | | LABORATORY | | + +-------+ + + + | MPV | 8.2 | fL | [facility] | | | | | | [facility] | | | | | | MEDICAL | | | | | | CENTER - | | | | | | LABORATORY | | + +-------+ + + + | % | 58.3 | 45.0 - 82.0 % | [facility] | | | Neutrophils | | | [facility] | | | | | | MEDICAL | | | | | | CENTER - | | | | | | LABORATORY | | + +-------+ + + + | % | 30.3 | 20.0 - 45.0 % | [facility] | | | Lymphocytes | | | [facility] | | | | | | MEDICAL | | | | | | CENTER - | | | | | | LABORATORY | | + +-------+ + + + | % Monocytes | 9.6 | 4.0 - 12.0 % | [facility] | | | | | | [facility] | | | | | | MEDICAL | | | | | | CENTER - | | | | | | LABORATORY | | + +-------+ + + + | % | 1.4 | 0.0 - 5.0 % | [facility] | | | Eosinophils | | | [facility] | | | | | | MEDICAL | | | | | | CENTER - | | | | | | LABORATORY | | + +-------+ + + + | % Basophils | 0.4 | 0.0 - 1.0 % | [facility] | | | | | | [facility] | | | | | | MEDICAL | | | | | | CENTER - | | | | | | LABORATORY | | + +-------+ + + + | Absolute | 4.50 | 1.80 - 8.50 | [facility] | | | Neutrophils | | K/uL | [facility] | | | | | | MEDICAL | | | | | | CENTER - | | | | | | LABORATORY | | + +-------+ + + + | Absolute | 2.30 | 0.60 - 3.20 | [facility] | | | Lymphocytes | | K/uL | [facility] | | | | | | MEDICAL | | | | | | CENTER - | | | | | | LABORATORY | | + +-------+ + + + | Absolute | 0.70 | 0.00 - 1.00 | [facility] | | | Monocytes | | K/uL | [facility] | | | | | | MEDICAL | | | | | | CENTER - | | | | | | LABORATORY | | + +-------+ + + + | Absolute | 0.10 | 0.00 - 0.40 | [facility] | | | Eosinophils | | K/uL | [facility] | | | | | | MEDICAL | | | | | | CENTER - | | | | | | LABORATORY | | + +-------+ + + + | Absolute | 0.00 | 0.00 - 0.10 | [facility] | | | Basophils | | K/uL | [facility] | | | | | | MEDICAL | | | | | | CENTER - | | | | | | LABORATORY | | + +-------+ + + + + + | Specimen | + + | Blood | + + + + + + + | Performing | Address | City/State/Zipcode | Phone Number | | Organization | | | | + + + + + | [facility] | [address] | [place] | [phone] | | [facility] | | [address] | | | - LABORATORY | | | | + + + + + documented in this encounter Visit Diagnoses + + | Diagnosis | + + | Abdominal pain, unspecified abdominal location - Primary | + + documented in this encounter Administered Medications + +--------+ +--------+------+------+ | Medication Order | MAR | Action | Dose | Rate | Site | | | Action | Date | | | | + +--------+ +--------+------+------+ | HYDROmorphone (DILAUDID) | Given | 01/09/20 | 0.5 mg | | | | injection 0.5 mg 0.5 mg, | | 18 6:52 | | | | | Intravenous, ONCE, 01/08/18 at | | PM PDT | | | | | 1830, For 1 dose | | | | | | + +--------+ +--------+------+------+ +---+---+ | | | +---+---+ + +-------+ +------+---+---+ | ondansetron (ZOFRAN) injection | Given | 01/09/20 | 4 mg | | | | 4 mg 4 mg, Intravenous, ONCE, | | 18 6:52 | | | | | 01/08/18 at 1830, For 1 dose | | PM PDT | | | | + +-------+ +------+---+---+ +---+---+ | | | +---+---+ + +---------+ +--------+-------+---+ | sodium chloride 0.9% (NS) bolus | New Bag | 01/09/20 | 1,000 | 1000 | | | 1,000 mL 1,000 mL, Intravenous, | | 18 6:48 | mLs | mL/hr | | | Administer over 1 Hours, ONCE, | | PM PDT | | | | | 01/08/18 at 1830, For 1 dose | | | | | | + +---------+ +--------+-------+---+ +---+---+ | | | +---+---+ documented in this encounter"
--- OUTSIDE RECORDS SUMMARY | ~2019-11-16 | XMS | Clinical Summary ---
Demographics + + + | Address | [address] | | | [place] [address] | + + + | Home Phone | | + + + | Preferred Language | Unknown | + + + | Marital Status | Unknown | + + + | Anglican Affiliation | Unknown | + + + | Race | Unknown | + + + | Ethnic Group | Unknown | + + + Author + + + | Author | [facility] | | | and [place] | + + + | Organization | [facility] | | | and [...] Team Providers + +------+ + | Care Lead Applications Developer Name | Role | Phone | + [...] | | + + + + + Plan of Treatment + + + + + | Health Maintenance | Due Date | Last Done | Comments | + + + + + | Vaccine: | | | | | Dtap/Tdap/Td (1 - | 7 | | | | Tdap) | | | | + + + + + | Cervical Cancer | | | | | Screening (Pap) | 7 | | | + + + + + | Vaccine: Influenza | | | | | (Season Ended) | 0 | | | + + + + [...] | [employer] | [facility] | [id number] | | [phone] | | Medica | [...] [address] | | [place] | al/[place]ance | | 1996 | [phone] | [place] | | | [place] | | | [address] (Home) | [phone] | + +--------+ +--------+ + + Advance Directives + + + + + | Type | Date Recorded | Patient | Explanation | | | | [place] Customs And Border Officer | | + + + + + | Power of | | | | | Environmental Geologist | | | | + + + + + | Advance | 01/08/2018 7:46 | | | | Directive | PM | | | + + + + +"
--- OUTSIDE RECORDS SUMMARY | ~2019-11-16 | XMS | Clinical Summary ---
Demographics + + + | Address | [address] | | | [place] [address] | + + + | Home Phone | | + + + | Preferred Language | Unknown | + + + | Marital Status | Unknown | + + + | Protestant Affiliation | Unknown | + + + | Race | Unknown | + + + | Ethnic Group | Unknown | + + + Author + + + | Author | [facility] | | | and [place] | + + + | Organization | [facility] | | | and [place] [...] Team Providers + +------+ + | Care Lining Maker Name | Role | Phone | + [...] | [employer] | [facility] | [id number] | | [phone] | | Medica | [...] [place] | | | [address] (Home) | [phone] | + +--------+ +--------+ + + Advance Directives + + + + + | Type | Date Recorded | Patient | Explanation | | | | Product Support Technician | | + + + + + | Power of | | | | | Substance Addiction Coordinator | | | | + + + + + | Advance | 01/08/2018 7:46 | | | | Directive | PM | | | + + + + +"
--- OUTSIDE RECORDS SUMMARY | ~2019-11-16 | XMS | Encounter Summary ---
Demographics + + + | Address | [address] | | | [place] [address] | + + + | Home Phone | | + + + | Preferred Language | Unknown | + + + | Marital Status | Unknown | + + + | Jew Affiliation | Unknown | + + + | Race | Unknown | + + + | Ethnic Group | Unknown | + + + Author + + + | Author | [facility] | | | and Matteoana | + + + | Organization | [facility] | | | and [...] Team Providers + +------+ + | Care Plate Stacker Name | Role | Phone | + [...] + + | 01/08/ | Emergency | [facility] | Wellington Lawrence MD | Abdominal pain, | | 2018 | | [facility] | [address] | unspecified | | | | CENTER [address] | [place], [place] | abdominal location | | | | [place], [place] | [address] | (Primary Dx) | | | | [address] | | | | | | [phone] | | | +--------+ + + + [...] 1.010, 1.015, | [facility] | | | [place], | | 1.020, 1.025 | [facility] [...] | | Date | | | [facility] | | [...] ST. | [address] | [place], [place] | [phone] | | [facility] | | [address] | | | - LABORATORY | | [...] - 1.030 | [facility] | | | [place], | | | [facility] | | [...] + | [facility] | [address] | [place] | [phone] | | [facility] | | [address] | | | - LABORATORY | | [...] [address] | [place] | [phone] | | [facility] | | [address] | | | - LABORATORY | | [...] 10 | 7 - 18 mg/dL | [facility] | | | | | | [facility] | | | | | | MEDICAL | | | | | | CENTER - | | | | | | LABORATORY | | + + + + + + | Creatinine | 0.84 | 0.60 - 1.30 | [facility] | | | | | mg/dL [...] mL/min/1.73m2 | [facility] | | | [place] | RATE,ESTIMATED | | MEDICAL | | | | mL/min/1.02g4Rtgs than | | CENTER - | | [...] [address] | [place] | [phone] | | [facility] | | [address] | | | - LABORATORY | | [...] [address] | [place] | [phone] | | [facility] | | [address] | | | - LABORATORY | | [...]
[~2019-11-16 19:35] MED LIST changes: +SERTRALINE HCL50 MG PO
== END 2019-11-16 20:44 | disposition left against medical advice (07) ==
LOC: ED 19:35
DX: Z53.21 Procedure and treatment not carried out due to patient leaving prior to being seen by health care provider (principal)

== ENCOUNTER 2020-02-06 23:06 | Emergency (ER) | payer OTHER ==
[~2020-02-06] VITALS: Ht 154.9 cm; Wt 112.2 kg
--- OUTSIDE RECORDS SUMMARY | ~2020-02-06 | XMS | Encounter Summary ---
Demographics + + + | Address | [address] | | | [place] [address] | + + + | Home Phone | | + + + | Preferred Language | Unknown | + + + | Marital Status | Unknown | + + + | Jain Affiliation | Unknown | + + + | Race | Unknown | + + + | Ethnic Group | Unknown | + + + Author + + + | Author | [facility] | | | and [place]teo[place] | + + + | Organization | [facility] | | | and Matteoana [...] Team Providers + +------+ + | Care Chemical Mixer Name | Role | Phone | + [...] + + | 01/08/ | Emergency | [facility] | Wellington Lawrence MD | Abdominal pain, | | 2018 | | [facility] EM[facility] | [address] | unspecified | | | | CENTER [address] | [place], [place] | abdominal location | | | | [place], [place] | [address] | (Primary Dx) | | | | [address] | | | | | | [phone] | | | +--------+ + + + [...] on file | | + + + documented as of this encounter [...] + + documented as of this encounter ED Notes Wellington Lawrence MD - 01/08/2018 6:34 PM PDT Emergency Department Encounter NotE CHIEF COMPLAINT Abdominal pain HPI Jodi Bethea is a 22 y.o. female who presents to the Emergency Department with a bdominal pain that's been ongoing for the past 2-3 days. She then had her son jump on her s tomach and had increasing pain. She's been having some dry heaves. She's had decreased by mouth intake. No loose stool. No fever. She's had a previous but no other abdom inal surgeries. She's not had chest pain or shortness of breath. No syncope. No vaginal b leeding or discharge. She's not had urinary complaints. She was seen at an outside emergen cy department reportedly had a negative urinalysis and negative hCG and was discharged. She continues to have pain so comes up for further evaluation. PAST MEDICAL & SURGICAL HISTORY Past Medical History: Diagnosis Date Asthma Past Surgical History: Procedure Laterality Date CEASAREAN SECTION, MULTIPLES SOCIAL HISTORY Social History Social History Marital status: N/A Spouse name: N/A Number of children: N/A Years of education: N/A Social History Main Topics Smoking status: Never Smoker Smokeless tobacco: None Alcohol use Yes Comment: occasionally Drug use: Yes Types: Marijuana Sexual activity: Yes Partners: Male control/ protection: No Other Topics Concern None Social History Narrative None CURRENT MEDICATIONS Previous Medications ALBUTEROL 90 MCG/PUFF INHALER Inhale 2 puffs into the lungs every 6 hours as needed for Wheezing. ALLERGIES No Known Allergies REVIEW OF SYSTEMS As in history of present illness. A 10 system of review was otherwise negative. PHYSICAL EXAM VITAL SIGNS: (first vital signs):Temp: 36.3 C (97.3 F) Pulse: 72 Resp: 18 SpO2: 99 % BP : 116/69 General: Alert, appears well, non toxic HEENT: Normocephalic, atraumatic, OP clear, EOMI Neck: supple, full range of motion, no tracheal deviation Cardiovascular: Normal rate and rhythm, no murmurs, rubs or gallops Pulmonary: CTA bilateral, no wheeze/rhonci or resp distress Abdominal: Soft, diffuse suprapubic tenderness, does not isolated to one side, no rebound, no guarding Musculoskeletal: normal ROM, no edema Neurologic: Alert, no cranial nerve deficits, no focal deficits Skin: warm and dry LABS CBC unremarkable CMP unremarkable Lipase negative HCG negative UA negative IMAGING STUDIES Ultrasound pelvis does not reveal acute ASSESSMENT & ED COURSE Patient here with abdominal and pelvic pain. Exam is reassuring. Labs are reassuring. Ev en her symptoms concern for possible ovarian cyst and given retching possible torsion. He d id get ultrasound of the pelvis which is reassuring. She is also treated symptomatically he re. We'll plan on continued symptomatically treatment and gynecology follow-up. DISPOSITION Discharge FINAL IMPRESSION Abdominal Pain Wellington Lawrence MD 01/08/182146 Jocelynn, Mirta Barajas RN - 01/08/2018 6:12 PM PDTPt presents to the ED from home with complaints of 8/10 lower genera lized abdominal pain. Onset: 3 days. Pt reports that she has been laying on her couch for th e last couple days, unable to eat with stomach ache. She endorses dry heaves and denies diar jj. Last BM today. Pt recently had IUD removed in September 2017. Family is concerned for a cyst or tubal pregnanc y. documented in this encounter Plan of Treatment + +------+--------+ [...] | + +--------+ + + + | ED INFORMATION | Routin | 01/08/2018 | | | | EXCHANGE | e | 5:52 PM | | | | | | PDT | | | + +--------+ + + + +---+--------+ | | | | | Proced | | | ure | | | Note - | | | Kiah, | | | Lab In | | | | | | Hlseve | | | n - | | | | | | 2017 | | | 5:53 | | | PM PDT | | | | | | Format | | | ting | | | of | | | this | | | note | | | might | | | be | | | differ | | | ent | | | from | | | the | | | origin | | | al.KIAH | | | E?NOTI | | | FICATI | | | ON? | | | | | | 8 | | | 17:50? | | | TINNEL | | | L, | | | ELIZAB | | | ETH | | | C?MRN: | | | | | | [id number] | | | [id number] | | | his | | | patien | | | t has | | | regist | | | ered | | | at the | | | | | | Provid | | | ence | | | [facility] | | | [facility] | | | Medica | | | l | | | Center | | | | | | Emerge | | | ncy | | | Depart | | | ment | | | For | | | more | | | inform | | | ation | | | visit: | | | | | | https: | | | //secu | | | [email or web address] | | | ecarep | | | [email or web address] | | | m/nikia | | | ent/[email or web address] | | | [id number] | | | [phone] | | | [phone] | | | [phone] | | | [id number] | | | [phone] | | | Securi | | | ty | | | Events | | | No | | | recent | | | | | | Securi | | | ty | | | Events | | | | | | curren | | | tly on | | | | | | fileED | | | Care | | | Guidel | | | jadon | | | from | | | [facility] | | | alLast | | | | | | Update | | | d: | | | 7/6/17 | | | 2:17 | | | PM | | | Care | | | Coordi | | | nation | | | :ENCOU | | | RAGE | | | PATIEN | | | T TO | | | USE | | | PCP | | | FOR | | | FOLLOW | | | UP | | | AND | | | FOR | | | NON-EM | | | ERGENT | | | | | | PROBLE | | | MS.PLE | | | ASE | | | GIVE | | | PATIEN | | | T THIS | | | CASE | | | MANAGE | | | RS | | | NAME | | | AND | | | NUMBER | | | TO | | | CALL | | | FOR | | | HELP | | | OR | | | QUESTI | | | ONS.KR | | | IS | | | MONTEE | | | , RNED | | | CASE | | | MANAGE | | | RST | | | ANTHON | | | Y | | | HOSPIT | | | [id number] | | | [phone] | | | 34Thes | | | e are | | | guidel | | | jadon | | | and | | | the | | | provid | | | er | | | should | | | | | | exerci | | | se | | | clinic | | | al | | | judgme | | | nt | | | when | | | provid | | | ing | | | care.R | | | ecent | | | Emerge | | | ncy | | | Depart | | | ment | | | Visit | | | [facility] | | | yAdmit | | | Date | | | Facili | | | ty | | | City | | | State | | | Type | | | Major | | | Type | | | Diagno | | | ses or | | | Chief | | | | | | Compla | | | int | | | [facility] | | | 15, | | | 2018 | | | Provid | | | ence | | | [facility] | | | [facility] | | [place] | | | [place] | | | Emerge | | | ncy | | | Emerge | | | ncy | | | abd | | | pain | | | [facility] | | | 15, | | | 2018 | | | [facility] | [facility] | | | [facility] | | | [place] | | | [place] | | | Emerge | | | ncy | | | Emerge | | | ncy | | | Chief | | | Compla | | | int: | | | ABD | | | PAIN | | | E.D. | | | Visit | | | Count | | | (12 | | | mo.)Fa | | | cility | | | | | | Visits | | | Low | | | Acuity | | | | | | Provid | | | ence | | | St. | | | [facility] | | | Medica | | | l | | | Center | | | 1 0 | | | [facility] | | | [facility] | | | al 4 0 | | | Total | | | 5 0 | | | Note: | | | Visits | | | | | | indica | | | te | | | total | | | known | | | visits | | | . | | | Medica | | | id Low | | | | | | Acuity | | | Dx | | | are | | | the | | | number | | | of | | | primar | | | y | | | diagno | | | ses on | | | the | | | Medica | | | id's | | | Low | | | Acuity | | | dx | | | list. | | | | | | Recent | | | | | | Inpati | | | ent | | | Visit | | | [facility] | | | yNo | | | record | | | ed | | | inpati | | | ent | | | visits | | | . PDMP | | | | | | Report | | | PDMP | | | query | | | found | | | no | | | report | | | .Care | | | Provid | | | ersPro | | | vider | | | PRC | | | Type | | | Phone | | | Fax | | | Servic | | | e | | | Dates | | | Claudio | | | le | | | [place] | | | PAC, | | | PAC | | | Primar | | | y Care | | | ([phone]) | | | | | | [phone] | | | [phone] | | | [phone]) | | | [phone] | | | 27 | | | Curren | | | t | | | Criter | | | ia met | | | Care | | | | | | Guidel | | | inesKn | | | own | | | Aliase | | | sNo | | | known | | | aliase | | | s. The | | | above | | | | | | inform | | | ation | | | is | | | provid | | | ed for | | | the | | | sole | | | purpos | | | e of | | | patien | | | t | | | treatm | | | ent. | | | Use of | | | this | | | inform | | | ation | | | beyond | | | the | | | terms | | | of | | | Data | | | Sharin | | | g | | | Memora | | | ndum | | | of | | | Unders | | | tandin | | | g and | | | Licens | | | e | | | Agreem | | | ent is | | | | | | prohib | | | ited. | | | In | | | certai | | | n | | | cases | | | not | | | all | | | visits | | | may | | | be | | | repres | | | ented. | | | | | | Consul | | | t the | | | aforem | | | ention | | | ed | | | facili | | | ties | | | for | | | additi | | | onal | | | inform | | | ation. | | | ? | | | 2017 | | | Collec | | | tive | | | Medica | | | l | | | Techn[employer] | | | logies | | | , Inc[employer] | | | - | | | [place] | | | [place] | | | [place], | | | [place] - | | | [email or web address] | | | ollect | | | ivemed | | | icalte | | | [email or web address] | | | | +---+--------+ documented in this encounter Results US Kj Alba Transvaginal (01/08/2018 9:51 PM PDT) + + [...] | Procedure Note | + + | Kiah, Rad Results In - 01/09/2018 8:35 AM [...] | | Test, | | | [facility] | | | Urine, POC | | | MEDICAL | | | | | | CENTER - | | | | | | LABORATORY | | + + + + + + | Internal QC | Acceptable | Acceptable | [facility] | | | | | | [facility] | | | | | | MEDICAL | | | | | | CENTER - | | | | | | LABORATORY | | + + + + + + | Specific | | 1.010, 1.015, | [facility] | | | Gratis, | | 1.020, 1.025 | [facility] | | | POC | | | MEDICAL | | | | | | CENTER - | | | | | | LABORATORY | | + + + + + + | Lot Number | [id number] | | [facility] | | | | | | [facility] | | | | | | MEDICAL | | | | | | CENTER - | | | | | | LABORATORY | | + + + + + + | Expiration | 2019-04-05 | | [facility] | | | Date | | | [facility] | | | | | | MEDICAL [...] | + + + + + | [facility] | [address] | [place] | [phone] | | [facility] | | [address] | | | - LABORATORY | | [...] | POC | | Yellow | [facility] | | | | | | MEDICAL | | | | | | CENTER - | | | | | | LABORATORY | | + + + + + + | Clarity, | Slightly Cloudy | | [facility] | | | UA, POC | | | [facility] | | | | | | MEDICAL | | | | | | CENTER - | | | | | | LABORATORY | | + + + + + + | Glucose, | Negative | Negative | [facility] | | | UA, POC | | | [facility] | | | | | | MEDICAL | | | | | | CENTER - | | | | | | LABORATORY | | + + + + + + | Bilirubin, | Negative | Negative | [facility] | | | UA, POC | | | [facility] | | | | | | MEDICAL | | | | | | CENTER - | | | | | | LABORATORY | | + + + + + + | Ketones, | Negative | Negative, 100 | [facility] | | | UA, POC | | mg/dL | [facility] | | | | | | MEDICAL | | | | | | CENTER - | | | | | | LABORATORY | | + + + + + + | Specific | 1.025 | 1.001 - 1.030 | [facility] | | | Gratis, | | | [facility] | | | UA, POC | | | MEDICAL | | | | | | CENTER - | | | | | | LABORATORY | | + + + + + + | Blood, UA, | Negative | Negative | [facility] | | | POC | | | [facility] | | | | | | MEDICAL | | | | | | CENTER - | | | | | | LABORATORY | | + + + + + + | pH, UA, POC | 6.0 | 5.0, 6.0, 7.0, | [facility] | | | | | 8.0, 5.5, 6.5, | [facility] | | | | | 7.5 | MEDICAL | | | | | | CENTER - | | | | | | LABORATORY | | + + + + + + | Protein, | Negative | Negative | [facility] | | | UA, POC | | | [facility] | | | | | | MEDICAL | | | | | | CENTER - | | | | | | LABORATORY | | + + + + + + | Urobilinoge | < 0.2 E.U./dl | 0.2, Negative, | [facility] | | | n, UA, POC | | Normal, < 0.2 | [facility] | | | | | mg/dL, 1 mg/dL, | MEDICAL | | | | | < 0.2 E.U./dl, | CENTER - | | | | | 1.0 E.U./dL, | LABORATORY | | | | | 0.2 mg/dL | | | + + + + + + | Nitrite, | Negative | Negative | [facility] | | | UA, POC | | | [facility] | | | | | | MEDICAL | | | | | | CENTER - | | | | | | LABORATORY | | + + + + + + | Leukocyte | Negative | Negative | [facility] | | | Esterase, | | | [facility] | | | UA, POC | | | MEDICAL | | | | | | CENTER - | | | | | | LABORATORY | | + + + + + + | Reducing | | | [facility] | | | Substances, | | | [facility] | | | Urine | | | MEDICAL | | | | | | CENTER - | | | | | | LABORATORY | | + + + + + + | Bilirubin | | Negative | [facility] | | | Confirmatio | | | [facility] | | | n by | | | MEDICAL | | | Ictotest, | | | CENTER - | | | Urine | | | LABORATORY | | + + + + + + | Remark | | | [facility] | | | | | | ST. [...] [address] | [place] | [phone] | | [facility] | | [address] | | | - LABORATORY | | | | + + + + + Lipase (01/08/2018 6:30 PM PDT) + +-------+ + + + | Component | Value | Ref Range | Performed | Pathologist | | | | | At | Signature | + +-------+ + + + | Lipase | 26 | 0 - 60 U/L | [facility] | | | | | | [facility] | | | | | | MEDICAL [...] + | [facility] | [address] | [place] | [phone] | | [facility] | | [address] | | | - LABORATORY | | [...] | | | | mmol/L | [facility] | | | | | | MEDICAL | | | | | | CENTER - | | | | | | LABORATORY | | + + + + + + | K | 3.6 | 3.5 - 5.1 | [facility] | | | | | mmol/L | [facility] | | | | | | MEDICAL | | | | | | CENTER - | | | | | | LABORATORY | | + + + + + + | Cl | 107 | 98 - 109 mmol/L | [facility] | | | | | | [facility] | | | | | | MEDICAL | | | | | | CENTER - | | | | | | LABORATORY | | + + + + + + | CO2 | 23 (L) | 24 - 31 mmol/L | [facility] | | | | | | [facility] | | | | | | MEDICAL | | | | | | CENTER - | | | | | | LABORATORY | | + + + + + + | Anion Gap | 8 | 3 - 16 mmol/L | [facility] | | | | | | [facility] | | | | | | MEDICAL | | | | | | CENTER - | | | | | | LABORATORY | | + + + + + + | Glucose | 88 | 70 - 109 mg/dL | [facility] | | | | | | [facility] | | | | | | MEDICAL | | | | | | CENTER - | | | | | | LABORATORY | | + + + + + + | BUN | 10 | 7 - 18 mg/dL | [facility] | | | | | | [facility] | | | | | | MEDICAL | | | | | | CENTER - | | | | | | LABORATORY | | + + + + + + | Creatinine | 0.84 | 0.60 - 1.30 | [facility] | | | | | mg/dL | [facility] | | | | | | MEDICAL | | | | | | CENTER - | | | | | | LABORATORY | | + + + + + + | eGFR, | >60Comment: GLOMERULAR | >=60 | [facility] | | | non- | FILTRATION | mL/min/1.73m2 | [facility] | | | [place] | RATE,ESTIMATED | | MEDICAL | | | | mL/min/1.83l0Ljds than | | CENTER - | | [...] | 8.9 | 8.3 - 10.5 | [facility] | | | | | mg/dL | [facility] | | | | | | MEDICAL | | | | | | CENTER - | | | | | | LABORATORY | | + + + + + + | Albumin | 3.8 | 3.2 - 5.0 g/dL | [facility] | | | | | | [facility] | | | | | | MEDICAL | | | | | | CENTER - | | | | | | LABORATORY | | + + + + + + | Bilirubin | 0.6Comment: This is an | 0.1 - 1.5 mg/dL | [facility] | | | Total | appended report. These | | [facility] | | | | results have [...] | | | Protein | | | [facility] | | | | | | MEDICAL | | | | | | CENTER - | | | | | | LABORATORY | | + + + + + + | AST | 18Comment: This is an | 10 - 42 U/L | [facility] | | | | appended report. These | | [facility] | | | | results have [...] | appended report. These | | [facility] | | | | results have [...] Phosphatase | appended report. These | | [facility] | | | | results have [...] [facility] | | | | | | [facility] | | | | | | MEDICAL | | | | | | CENTER - | | | | | | LABORATORY | | + + + + + + | Albumin/Em | 1.3 | 0.8 - 2.0 | [facility] | | | bulin Ratio | | | [facility] | | | | | | MEDICAL | | | | | | CENTER - | | | | | | LABORATORY | | + + + + + + | BUN/Creatin | 11.9 | | [facility] | | | ine Ratio | | | [facility] | | | | | | MEDICAL [...] [address] | [place] | [phone] | | [facility] | | [address] | | | - LABORATORY | | | | + + + + + CBC w/ Auto Differential (01/08/2018 6:30 PM PDT) + +-------+ + + + | Component | Value | Ref Range | Performed | Pathologist | | | | | At | Signature | + +-------+ + + + | White Blood | 7.7 | 4.0 - 11.0 K/uL | [facility] | | | Cells | | | [facility] | | | | | | MEDICAL | | | | | | CENTER - | | | | | | LABORATORY | | + +-------+ + + + | Red Blood | 4.68 | 3.70 - 5.20 | [facility] | | | Cells | | M/uL | [facility] | | | | | | MEDICAL | | | | | | CENTER - | | | | | | LABORATORY | | + +-------+ + + + | Hemoglobin | 13.3 | 11.5 - 16.0 | [facility] | | | | | g/dL | [facility] | | | | | | MEDICAL | | | | | | CENTER - | | | | | | LABORATORY | | + +-------+ + + + | Hematocrit | 39.1 | 34.0 - 47.0 % | [facility] | | | | | | [facility] | | | | | | MEDICAL | | | | | | CENTER - | | | | | | LABORATORY | | + +-------+ + + + | MCV | 83.6 | 83.0 - 101.0 fL | [facility] | | | | | | [facility] | | | | | | MEDICAL | | | | | | CENTER - | | | | | | LABORATORY | | + +-------+ + + + | MCH | 28.4 | 28.0 - 35.0 pg | [facility] | | | | | | [facility] | | | | | | MEDICAL | | | | | | CENTER - | | | | | | LABORATORY | | + +-------+ + + + | MCHC | 34.0 | 32.0 - 36.0 | [facility] | | | | | g/dL | [facility] | | | | | | MEDICAL | | | | | | CENTER - | | | | | | LABORATORY | | + +-------+ + + + | RDW-CV | 14.8 | <15.0 % | [facility] | | | | | | [facility] | | | | | | MEDICAL | | | | | | CENTER - | | | | | | LABORATORY | | + +-------+ + + + | Platelet | 249 | 140 - 440 K/uL | [facility] | | | Count | | | [facility] | | | | | | MEDICAL | | | | | | CENTER - | | | | | | LABORATORY | | + +-------+ + + + | MPV | 8.2 | fL | [facility] | | | | | | [facility] | | | | | | MEDICAL | | | | | | CENTER - | | | | | | LABORATORY | | + +-------+ + + + | % | 58.3 | 45.0 - 82.0 % | [facility] | | | Neutrophils | | | [facility] | | | | | | MEDICAL | | | | | | CENTER - | | | | | | LABORATORY | | + +-------+ + + + | % | 30.3 | 20.0 - 45.0 % | [facility] | | | Lymphocytes | | | [facility] | | | | | | MEDICAL | | | | | | CENTER - | | | | | | LABORATORY | | + +-------+ + + + | % Monocytes | 9.6 | 4.0 - 12.0 % | [facility] | | | | | | [facility] | | | | | | MEDICAL | | | | | | CENTER - | | | | | | LABORATORY | | + +-------+ + + + | % | 1.4 | 0.0 - 5.0 % | [facility] | | | Eosinophils | | | [facility] | | | | | | MEDICAL [...] | Neutrophils | | K/uL | [facility] | | | | | | MEDICAL | | | | | | CENTER - | | | | | | LABORATORY | | + +-------+ + + + | Absolute | 2.30 | 0.60 - 3.20 | [facility] | | | Lymphocytes | | K/uL | [facility] | | | | | | MEDICAL | | | | | | CENTER - | | | | | | LABORATORY | | + +-------+ + + + | Absolute | 0.70 | 0.00 - 1.00 | [facility] | | | Monocytes | | K/uL | [facility] | | | | | | MEDICAL | | | | | | CENTER - | | | | | | LABORATORY | | + +-------+ + + + | Absolute | 0.10 | 0.00 - 0.40 | [facility] | | | Eosinophils | | K/uL | [facility] | | | | | | MEDICAL | | | | | | CENTER - | | | | | | LABORATORY | | + +-------+ + + + | Absolute | 0.00 | 0.00 - 0.10 | [facility] | | | Basophils | | K/uL | [facility] | | | | | | MEDICAL [...] | + + + + + | [facility] | [address] | [place] | [phone] | | [facility] | | [address] | | | - LABORATORY | | [...] | | + +--------+ +--------+------+------+ | HYDROmorphone (TREEID) | Given | 01/09/20 | 0.5 mg | | | | injection 0.5 mg 0.5 mg, | | 18 6:52 | | | | | Intravenous, ONCE, [place] 01/08/18 at | | PM PDT | [...]
--- OUTSIDE RECORDS SUMMARY | ~2020-02-06 | XMS | Clinical Summary ---
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 | Role | Phone | + [...] + + Plan of Treatment + + +-------+ + | Health Maintenance | Due Date | Last | Comments | | | | Done | | + + +-------+ + | Vaccine: | | | | | Dtap/Tdap/Td (1 - | 5 | | | | Tdap) | | | | + + +-------+ + | Cervical Cancer | | | | | Screening (Pap) | 7 | | | + + +-------+ + | Vaccine: Influenza | | | | | (#1) | 0 | | | + + +-------+ + Results Not on filefrom Last 3 [...] | [facility] | [facility] | [id number] | | [phone] | | [facility] | [...] [address] | | [place]iam | al/Fam | | 1996 | [phone] | [place] | | | [place] | | | 1 (Home) | [id number] | + +--------+ +--------+ + + Advance Directives + + + + + | Type | Date Recorded | Patient | Explanation | | | | Bridge Repairer | | + + + + + | Power of | | | | | Operator Catalyst Concentration | | | | + + + + + | Advance | 01/08/2018 7:46 | | | | Directive | PM | | | + + + + +"
[2020-02-07] MEDS ORDERED: ZITHROMAX250 MG PO (00:23)
--- NOTE | 2020-02-07 21:06 | PATH ---
[facility] [address] [facility] [place], [place] [address] Signed ORDERING PHYSICIAN: Austen Fraser MD PATIENT NAME: GURINDER CHANDRA GENDER: F : 1995 SPECIMEN(S): No Source Given MOLECULAR PATHOLOGY RESULTS: SARS-CoV-2 Not Detected ADDITIONAL NOTES.: The [place] Fusion SARS-CoV-2 Assay is a multiplex real-time PCR (RT-PCR) in vitro diagnostic test intended for the qualitative detection of RNA from SARS-CoV-2 from individuals who meet COVID-19 clinical and/or epidemiological criteria. In general, SARS-CoV-2 RNA can be detected during the acute phase of infection. Positive results indicate the presence of SARS-CoV-2 RNA. Clinical correlation with patient history and other diagnostic information is necessary to determine patient infection status. Positive results do not rule out bacterial infection or co-infection with other viruses. Negative results do not preclude SARS-CoV-2 infection and should not be used as the sole basis for patient management decisions. Negative results must be combined with other clinical observations, patient history, and epidemiological information. The [place] Fusion SARS-CoV-2 Assay is not yet approved or cleared by the [place] FDA. When there are no FDA-approved or cleared tests available, and other criteria are met, FDA can make tests available under an emergency access mechanism called an Emergency Use Authorization (EUA). The EUA for this test is supported by the [place] of Health and Human Service's (HHS's) declaration that circumstances exist to justify the emergency use of in vitro diagnostics for the detection and/or diagnosis of the virus that causes COVID-19. This EUA will remain in effect for the duration of the COVID-19 declaration justifying emergency of IVDs, unless it is terminated or revoked by FDA, after which the test may no longer be used. The [place] Fusion SARS-CoV-2 Assay is for use only under EUA in US laboratories certified under the Clinical Laboratory Improvement Amendments of 1988 (CLIA) to perform high complexity tests. [facility] is certified under CLIA to perform high complexity PATIENT NAME: GURINDER CHANDRA PATHOLOGY DATE OF : [birth year] REPORT #: [id number] PHYSICIAN: JUDIT PATHOLOGY PCP: VASHTI BRANHAM PAC REPORT IS CONFIDENTIAL AND NOT TO BE RELEASED WITHOUT AUTHORIZATION [address] [address] Signed clinical laboratory testing. PERFORMING LABORATORY.: Molecular testing was performed by [facility] [place] [address] (Inspector Casing: Julio Dumont D.O.; CLIA#: [id number]) Diagnostician: System Interface Pathologist Electronically Signed 02/07/2020 Copies: ~ PATIENT NAME: GURINDER CHANDRA JEREMIAS PATHOLOGY DATE OF : [birth year] REPORT #: [id number] PHYSICIAN: JUDIT HYDE PCP: VASHTI BRANHAM PAC REPORT IS CONFIDENTIAL AND NOT TO BE RELEASED WITHOUT AUTHORIZATION
== END 2020-02-07 00:46 | disposition home or self-care (01) ==
LOC: ED 23:06
DX: J32.9 Chronic sinusitis, unspecified (principal); J45.909 Unspecified asthma, uncomplicated; F31.9 Bipolar disorder, unspecified; Z20.828 Contact with and (suspected) exposure to other viral communicable diseases; Z79.899 Other long term (current) drug therapy
CPT/HCPCS: 71045; 81001; 99284-25; C9803; J7030

== ENCOUNTER 2020-05-05 12:03 | Emergency (ER) | payer OTHER ==
[~2020-05-05] VITALS: Ht 154.9 cm; Wt 118.2 kg
[~2020-05-05 12:03] MED LIST changes: +ZITHROMAX250 MG PO
--- NOTE | 2020-05-06 14:10 | EKG ---
[facility] [address] [facility] [place], [place] [address] Signed Normal sinus rhythm Normal ECG When compared with ECG of 21-APR-2019 12:16, No significant change was found Confirmed by RAMANA KEMP MD ([id number]) on 05/06/2020 2:10:11 PM Electronically Signed By: RAMANA KEMP MD 05/06/20 1410 PATIENT NAME: GURINDER CHANDRA Electrocardiogram DATE OF : [birth year] PHYSICIAN: RAMANA KEMP MD REPORT #: [id number] REPORT IS CONFIDENTIAL AND NOT TO BE RELEASED WITHOUT AUTHORIZATION
== END 2020-05-05 14:21 | disposition home or self-care (01) ==
LOC: ED 12:03
DX: M94.0 Chondrocostal junction syndrome [Tietze] (principal); J45.909 Unspecified asthma, uncomplicated; Z87.891 Personal history of nicotine dependence; Z79.899 Other long term (current) drug therapy
CPT/HCPCS: 80053; 83690; 84484; 85025; 93005; 93010; 99285-25; A9270

== ENCOUNTER 2021-04-09 11:45 | Inpatient (IN) | payer OTHER ==
[~2021-04-09] VITALS: Ht 152.4 cm; Wt 120.7 kg
[2021-04-15] MEDS ORDERED: OMEPRAZOLE20 MG PO (13:21)
[2021-04-15] MEDS ORDERED: CLEOCIN HCL300 MG PO (15:40)
--- NOTE | 2021-04-29 09:17 | NUR ---
04/29/21 0917 Yonathan,Mary 4018 PT ARRIVED TO ROOM 104 WITH FBC RNS AT BEDSIDE AND VSS. PT REPORT PAIN WITH FUNDAL CHECKS. IV INFUSING LR WITH 40 PIT, SITE WNL. 0910 PT REPORTS 9.5/10 PAIN WITH FUNDAL CHECK AND 0/10 WHILE RESTING IN BED. PT DENIES THE NEED FOR PAIN MEDICAITON AT THIS TIME. VSS. HOB INCREASED AND BABY TO CHEST WITH FBC RN.
--- NOTE | 2021-04-30 13:25 | PR ---
[facility] [address] [facility] [place] [facility] [place] [address] Signed PP Progress Notes Datetime Report Generated by CPN: 04/30/2021 13:25 SUBJECTIVE: [id number] Pain: Within Normal Limits Nausea/Vomiting: Denies Bowel Movement: Yes Vital Signs: [id number] Vital Signs: Reviewed; Within Normal Limits Notable Details: PP Hgb/Hct = 8.4/25.6 Abdomen/Uterus: Normal Lochia: Normal Extremities: Normal Incision: Normal Exam Comments: dressing clean and dry IMPRESSION/PLAN/PROCEDURES: [id number] Impression: Normal Progression Other Impression: PP Anemia Plan: Continue Present Management Procedures: None Progress Notes: Doing well, tolerating well Signing Physician: Luis Hobson MD Copies: ~ *Electronically Signed* 04/30/21 1325 LUIS HOBSON MD PATIENT NAME: GURINDER CHANDRA PROGRESS NOTE DATE OF : [birth year] PHYSICIAN: LUIS HOBSON MD RPT #: [id number] REPORT IS CONFIDENTIAL AND NOT TO BE RELEASED WITHOUT AUTHORIZATION
--- NOTE | 2021-04-30 13:29 | OR ---
[facility] [address] [place], [place] [address] Signed DATE OF OPERATION: 04/29/2021 SURGEON: Shawn Whitney MD PREOPERATIVE DIAGNOSIS: Term , previous section x2. POSTOPERATIVE DIAGNOSIS: Term , previous section x2. PROCEDURE: Repeat low transverse segment section, delivery of live male . GAS SYSTEMS WORKER: Dr. Alicea. ANESTHESIA: Spinal. ESTIMATED BLOOD LOSS: 750 mL. COMPLICATIONS: None. DRAINS: Lucia to bladder. FINDINGS: Live male , Apgars 8 and 9. Weight 10 pounds 4 ounces. Normal uterus with except for bladder elevated somewhat up onto the lower uterine segment. Normal tubes and ovaries bilateral. DESCRIPTION OF PROCEDURE: The patient was brought to the operating room, placed in supine position. After adequate spinal anesthesia was obtained, the patient was prepped and draped in usual sterile fashion. A Pfannenstiel skin incision was made with a scalpel and extended through the subcutaneous tissue with a scalpel and Bovie. The fascia was nicked with scalpel and extended in transverse fashion using curved scissors. The underlying abdominal musculature was bluntly and sharply from the fascia above and below Electronically Signed By: SHAWN WHITNEY MD 04/30/21 1329 PATIENT NAME: GURINDER CHANDRA OPERATIVE REPORT DATE OF : [birth year] REPORT #: [id number] PHYSICIAN: SHAWN WHITNEY MD PCP: LAVERN BURKETT REPORT IS CONFIDENTIAL AND NOT TO BE RELEASED WITHOUT AUTHORIZATION [facility] [address] [place], [place] [address] Signed the incision. The abdominal wall musculature was grasped with hemostats in the midline, elevated, nicked with scissors and a finger placed into the abdominal cavity and after palpation of the anterior abdominal wall peritoneum, incision was extended toward the umbilicus with Kay scissors. Caudally, the bladder was noted to be somewhat elevated, so the dissection was stopped at the bladder flap. The abdominal musculature was then bluntly above the bladder flap and Metzenbaum scissors used to dissect the anterior cul-de-sac peritoneum to develop bladder flap so that the lower segment could be more easily reached without damaging the bladder. The lower uterine segment was identified and carefully nicked with scalpel, large amount of clear fluid came from the incision. The incision was extended in a transverse fashion using finger dissection, the infant was noted to be in the vertex TEX presentation. The infant head was delivered from the incision. The rest of the was delivered from the incision and the cord doubly clamped and cut. The was passed off table in good condition to awaiting property clerk. The placenta was manually removed and uterine cavity explored with a lap pad to remove any retained membranes. The uterus was palpated and given additional Pitocin because of being slightly more boggy than normal, but during the closure, it did firm up. An angle stitch of 0 Monocryl was placed at one end of the incision and a running locking stitch of 0-Monocryl starting at the other end used to close the incision, a running stitch of 0 Monocryl was used to imbricate the first layer. Good hemostasis was obtained. The Johnny retractor was removed. The pelvis examined, any superficial bleeding spots cauterized with the Bovie. A sheet of ACell was placed over the lower uterine segment and then, the anterior wall peritoneum was closed using running stitch of 2-0 Vicryl suture. The abdominal musculature was reapproximated using interrupted stitches of 0 Vicryl suture. The abdominal wall incision was irrigated, suctioned, and examined, and any bleeding spots cauterized with the Bovie. Powdered ACell sprinkled over the abdominal musculature and then, the fascia closed using two running stitch of 0 Vicryl suture meeting in the midline. Subcutaneous tissue was irrigated, suctioned, and examined, and any bleeding spots cauterized with the Bovie. Subcutaneous tissue was then closed using interrupted stitches of 3-0 Vicryl suture. The skin reapproximated using skin clips. The patient tolerated the procedure well, went to recovery room in good condition. The sponge, needle, and instrument count were correct at the end of the procedure. MD PAO CrooksB/KACIEL /[id number] Electronically Signed By: SHAWN WHITNEY MD 04/30/21 1329 PATIENT NAME: GURINDER CHANDRA OPERATIVE REPORT DATE OF : [birth year] REPORT #: [id number] PHYSICIAN: SHAWN WHITNEY MD PCP: LAVERN BURKETT REPORT IS CONFIDENTIAL AND NOT TO BE RELEASED WITHOUT AUTHORIZATION [address] [address] Signed Copies: ~ Electronically Signed By: SHAWN WHITNEY MD 04/30/21 1329 PATIENT NAME: GURINDER CHANDRA OPERATIVE REPORT DATE OF : [birth year] REPORT #: [id number] PHYSICIAN: SHAWN WHITNEY MD PCP: LAVERN BURKETT REPORT IS CONFIDENTIAL AND NOT TO BE RELEASED WITHOUT AUTHORIZATION
--- NOTE | 2021-05-01 12:43 | PR ---
[facility] [address] [facility] [place], [place] [address] Signed PP Progress Notes Datetime Report Generated by CPN: 05/01/2021 12:43 SUBJECTIVE: [id number] Pain: Within Normal Limits Nausea/Vomiting: Denies Bowel Movement: Yes Vital Signs: [id number] Vital Signs: Reviewed; Within Normal Limits Notable Details: PP Hgb/Hct = 8.4/25.6 EXAM: Met Abdomen/Uterus: Normal Lochia: Normal Extremities: Normal Incision: Normal Exam Comments: dressing clean and dry IMPRESSION/PLAN/PROCEDURES: [id number] Impression: Normal Progression Other Impression: PP Anemia Plan: Discharge Procedures: None Progress Notes: Doing well, without complaint, ready to go home. Signing Physician: Luis Hosbon MD Copies: ~ *Electronically Signed* 05/01/21 1243 LUIS HOBSON MD PATIENT NAME: GURINDER CHANDRA PROGRESS NOTE DATE OF : [birth year] PHYSICIAN: LUIS HOBSON MD RPT #: [id number] REPORT IS CONFIDENTIAL AND NOT TO BE RELEASED WITHOUT AUTHORIZATION
== END 2021-05-01 12:55 | disposition home or self-care (01) | DRG 787 ==
LOC: FBC 04-29 05:01
PROVIDERS: ADMIT General Practice; ATTEND General Practice
PROC: 10D00Z1 Extraction of Products of Conception, Low, Open Approach (ICD-10-PCS; principal; 2021-04-29 06:45)
DX: O34.211 Maternal care for low transverse scar from previous cesarean delivery (principal); O98.52 Other viral diseases complicating childbirth; Z3A.39 39 weeks gestation of pregnancy; Z37.0 Single live birth; Z87.891 Personal history of nicotine dependence; O99.214 Obesity complicating childbirth; O90.81 Anemia of the puerperium; D64.9 Anemia, unspecified; E66.9 Obesity, unspecified; B00.9 Herpesviral infection, unspecified; Z20.822 Contact with and (suspected) exposure to COVID-19; Z91.040 Latex allergy status
CPT/HCPCS: 01961; 85027; A9270; J0690; J1644; J1885; J2001; J2274; J2405; J2590; J2765; J7121

== ENCOUNTER 2021-04-15 13:03 | Emergency (ER) | payer OTHER ==
[~2021-04-15] VITALS: Ht 154.9 cm; Wt 113.9 kg
[2021-04-15] MEDS ORDERED: OMEPRAZOLE20 MG PO (13:21)
[2021-04-15] MEDS ORDERED: CLEOCIN HCL300 MG PO (15:40)
== END 2021-04-15 15:54 | disposition home or self-care (01) ==
LOC: ED 13:03
PROC: 0U9M0ZZ Drainage of Vulva, Open Approach (ICD-10-PCS; principal; 2021-04-15)
DX: O23.593 Infection of other part of genital tract in pregnancy, third trimester (principal); O99.513 Diseases of the respiratory system complicating pregnancy, third trimester; O99.343 Other mental disorders complicating pregnancy, third trimester; J45.909 Unspecified asthma, uncomplicated; F90.9 Attention-deficit hyperactivity disorder, unspecified type; Z3A.37 37 weeks gestation of pregnancy; Z87.891 Personal history of nicotine dependence
CPT/HCPCS: 56405; 99282-25

== ENCOUNTER 2022-09-10 20:47 | Emergency (ER) | payer MEDICARE, OTHER ==
[~2022-09-10] VITALS: Ht 152.4 cm; Wt 117.0 kg
[~2022-09-10 20:47] MED LIST changes: +CLEOCIN HCL300 MG PO; +M-NATAL PLUS T1 EACH PO; +OMEPRAZOLE20 MG PO
[2022-09-10] MEDS ORDERED: PROMETHAZINE12.5 M1 PO (21:03)
== END 2022-09-10 22:18 | disposition home or self-care (01) ==
LOC: ED 20:47
DX: O99.891 Other specified diseases and conditions complicating pregnancy (principal); R23.3 Spontaneous ecchymoses; Z3A.15 15 weeks gestation of pregnancy; J45.909 Unspecified asthma, uncomplicated; Z87.891 Personal history of nicotine dependence; Z88.8 Allergy status to other drugs, medicaments and biological substances; Z91.048 Other nonmedicinal substance allergy status; Z79.899 Other long term (current) drug therapy
CPT/HCPCS: 36415; 80053; 85025; 99283

== ENCOUNTER 2022-09-17 10:19 | Emergency (ER) | payer MEDICARE, OTHER ==
[~2022-09-17] VITALS: Ht 152.4 cm; Wt 117.0 kg
[~2022-09-17 10:19] MED LIST changes: +PROMETHAZINE12.5 M1 PO
== END 2022-09-17 12:11 | disposition home or self-care (01) ==
LOC: ED 10:19
DX: O20.9 Hemorrhage in early pregnancy, unspecified (principal); O99.512 Diseases of the respiratory system complicating pregnancy, second trimester; J45.909 Unspecified asthma, uncomplicated; Z87.891 Personal history of nicotine dependence; Z91.040 Latex allergy status; Z91.048 Other nonmedicinal substance allergy status; Z79.899 Other long term (current) drug therapy; Z3A.16 16 weeks gestation of pregnancy
CPT/HCPCS: 76815; 99284-25

== ENCOUNTER 2024-01-09 14:58 | Emergency (ER) | payer MEDICARE, OTHER ==
[~2024-01-09] VITALS: Ht 152.4 cm; Wt 105.0 kg
[~2024-01-09 14:58] MED LIST changes: +IBUPROFEN600 MG PO; +TYLENOL EXTRA500 MG PO
[2024-01-09] MEDS ORDERED: PROCHLORPERAZINE EDISYLATE 10 MG/2 ML VIAL IV ONE (16:00)
[2024-01-09] MEDS ORDERED: diphenhydrAMINE HCL 50 MG/ML VIAL IV ONE (16:00)
[2024-01-09] MEDS ORDERED: METOCLOPRAMIDE HCL 10 MG/2 ML SDV IV ONE (16:00)
[2024-01-09] MEDS ORDERED: ACETAMINOPHEN 325 MG TAB PO ONE (16:00)
[2024-01-09 16:21] LABS: BASOPHILS 0.5 % (0-2); EOSINOPHILS 1.7 % (0-6); HEMATOCRIT 37.2 % (35.0-50.0); HEMOGLOBIN 11.9 g/dL (12.0-18.0); LYMPHOCYTES 37.4 % (24-44); MCH 25.9 (27-36); MCV 80.7 fl (81-99); MONOCYTES 10.8 % (0-12); NEUTROPHILS 49.6 % (39-80); PLATELET COUNT 254 K/uL (140-440); RBC 4.61 M/ul (4.3-5.7); RDW 15.6 (10.5-15.0)
[2024-01-09 16:37] LABS: ALBUMIN 3.5 g/dL (3.4-5.0); ANION GAP 11.9 (7-21); BILIRUBIN, TOTAL 0.7 ng/dL (0.2-1.0); BUN/CREATININE RATIO 6.18 (6.0-28.6); CALCIUM 8.5 mg/dL (8.5-10.1); CREATININE, SERUM 0.97 mg/dL (0.55-1.02); POTASSIUM 2.9 mmol/L (3.5-5.1)
[2024-01-09] MEDS ORDERED: SODIUM CHLORIDE 0.9% 1,000 ML IV PRN (17:15)
[2024-01-09] MEDS ORDERED: ONDANSETRON ODT8 MG PO (18:39)
[2024-01-09] MEDS ORDERED: POTASSIUM CHLORIDE 10 MEQ TABCR PO ONE (18:45)
[2024-01-09 18:56] VITALS: BP 101/53
--- NOTE | 2024-01-09 21:27 | EKG ---
[facility] [address] [facility] [place] [address] Signed Sinus bradycardia Otherwise normal ECG When compared with ECG of 23-JUN-2023 22:12, QT has lengthened Confirmed by Jennyfer Hayes MD () on 01/09/2024 9:26:57 PM Electronically Signed By: JENNYFER HAYES MD 01/09/24 2127 PATIENT NAME: GURINDER CHANDRA Electrocardiogram DATE OF : [birth year] PHYSICIAN: JENNYFER HAYES MD REPORT #: [id number] REPORT IS CONFIDENTIAL AND NOT TO BE RELEASED WITHOUT AUTHORIZATION
== END 2024-01-09 18:57 | disposition home or self-care (01) ==
LOC: ED 14:58
PROVIDERS: Emergency Medicine
DX: R55 Syncope and collapse (principal); R51.9 Headache, unspecified; E87.6 Hypokalemia; J45.909 Unspecified asthma, uncomplicated; F31.9 Bipolar disorder, unspecified; Z87.891 Personal history of nicotine dependence; Z91.040 Latex allergy status; Z91.048 Other nonmedicinal substance allergy status; Z79.899 Other long term (current) drug therapy
CPT/HCPCS: 36415; 70450; 80053; 84703; 85025; 93005; 93010; A9270; J0780; J1200; J2765; J7030

== ENCOUNTER 2024-10-20 21:30 | Emergency (ER) | payer MEDICARE, OTHER ==
[~2024-10-20] VITALS: Ht 152.4 cm; Wt 102.0 kg
[~2024-10-20 21:30] MED LIST changes: +ONDANSETRON ODT8 MG PO
[2024-10-20] MEDS ORDERED: AMOX TR-K CLV1 EAC1 PO (21:41)
[2024-10-20] MEDS ORDERED: AMOXICILLIN/CLAVULANATE K 875 MG HOME.PACK PO ONE (21:45)
[2024-10-20 21:50] VITALS: BP 103/72
== END 2024-10-20 21:51 | disposition home or self-care (01) ==
LOC: ED 21:30
DX: S91.331A Puncture wound without foreign body, right foot, initial encounter (principal); J45.909 Unspecified asthma, uncomplicated; W45.0XXA Nail entering through skin, initial encounter; Z91.040 Latex allergy status; Z91.048 Other nonmedicinal substance allergy status; Z87.891 Personal history of nicotine dependence
CPT/HCPCS: 99282

== ENCOUNTER 2025-03-18 19:06 | Emergency (ER) | payer MEDICARE, OTHER ==
[~2025-03-18] VITALS: Ht 152.4 cm; Wt 116.0 kg
[~2025-03-18 19:06] MED LIST changes: +AMOX TR-K CLV1 EAC1 PO
[2025-03-18 20:06] VITALS: BP 150/71
--- NOTE | 2025-03-19 22:26 | EKG ---
[facility] [address] [facility] [place], [place] [address] Signed Normal sinus rhythm Normal ECG Confirmed by Jennyfer Hayes MD ([id number]) on 03/19/2025 10:26:35 PM Electronically Signed By: JENNYFER HAYES MD 03/19/252225 PATIENT NAME: GURINDER STEINBERG Electrocardiogram DATE OF : [birth year] PHYSICIAN: JENNYFER HAYES MD REPORT #: [id number] REPORT IS CONFIDENTIAL AND NOT TO BE RELEASED WITHOUT AUTHORIZATION
== END 2025-03-18 20:06 | disposition left against medical advice (07) ==
LOC: ED 19:06
DX: T63.441A Toxic effect of venom of bees, accidental (unintentional), initial encounter (principal); R42 Dizziness and giddiness; R07.9 Chest pain, unspecified; Z53.21 Procedure and treatment not carried out due to patient leaving prior to being seen by health care provider
CPT/HCPCS: 93005; 93010

== ENCOUNTER 2025-03-22 17:06 | Emergency (ER) | payer MEDICARE, OTHER ==
[2025-03-22 17:21] VITALS: BP 00/00
== END 2025-03-22 17:26 | disposition left against medical advice (07) ==
LOC: ED 17:06
DX: Z53.21 Procedure and treatment not carried out due to patient leaving prior to being seen by health care provider (principal)